=== PATIENT | female | born 1945 | race Caucasian/White ===

== ENCOUNTER 2017-10-15 14:52 | Emergency (ER) | payer OTHER ==
[~2017-10-15] VITALS: Ht 162.6 cm; Wt 77.1 kg
[2017-10-15] MEDS: METOPROLOL TARTRATE 1MG/1ML-5ML VIAL IV ONE (15:36)
[2017-10-15 16:48] LABS: Albumin 3.7 g/dL (3.4-5.0); Bilirubin, Total 0.6 mg/dL (0.2-1.0); Calcium 8.4 mg/dL (8.5-10.1); Magnesium 2.5 mg/dL (1.6-2.6); Potassium 3.8 mmol/L (3.5-5.1); Total Protein 6.7 g/dL (6.4-8.2)
[2017-10-15 16:50] LABS: Basophils # (auto) 0 uL; Basophils % (auto) 0.4 % (0.0-2.0); Eosinophils # (auto) 0 uL; Eosinophils % (auto) 0.3 % (0.0-7.0); Hematocrit 40.5 % (36.0-46.0); Hemoglobin 13.5 g/dL (12.2-16.2); Lymphocytes # (auto) 2.2 uL; Lymphocytes % (auto) 23.7 % (10.0-50.0); Mean Corpuscular Hemoglobin 28.5 pg (28.0-32.0); Mean Corpuscular Hgb Conc. 33.3 g/dL (32.0-36.0); Mean Corpuscular Volume 85.7 fL (80.0-100.0); Monocytes # (auto) 0.6 uL; Monocytes % (auto) 6.3 % (0.0-12.0); Neutrophils # (auto) 6.5 uL; Neutrophils % (auto) 69.3 % (37.0-80.0); Nucleated Red Blood Cells % 0.1 %; Platelet Count (auto) 226 10^3/uL (140-450); Red Blood Cells 4.72 10^6/uL (4.0-5.20); White Blood Cell 9.4 10^3/uL (4.4-10.8)
[2017-10-15] MEDS: FUROSEMIDE 40 MG/4 ML VIAL IV ONE (17:06)
[2017-10-15 17:30] VITALS: BP 153/81
== END 2017-10-15 17:57 | disposition home or self-care (01) ==
LOC: ER 14:56
DX: I48.91 Unspecified atrial fibrillation (principal); I11.0 Hypertensive heart disease with heart failure; I50.9 Heart failure, unspecified; F17.210 Nicotine dependence, cigarettes, uncomplicated; Z90.710 Acquired absence of both cervix and uterus
CPT/HCPCS: 36415; 71045; 80053; 80162; 83735; 83880; 84443; 84484; 85025; 93005; 94761; 96374; 96375; 99285; J1940

== ENCOUNTER 2022-08-06 15:47 | Emergency (ER) | payer MEDICARE, OTHER ==
[~2022-08-06] VITALS: Ht 160 cm; Wt 72.7 kg
[~2022-08-06 15:47] MED LIST: ALPR0.254 PO; BENZ100C97 PO; BUSP15TA60 PO; DIGO0.25 PO; LAMO100T44 PO; LOSA25TA38 PO; MET50T PO; POTA10TA51 PO; WARF2TAB49 PO
[2022-08-06 16:49] LABS: Basophils # (auto) 0 10 ^3/uL (0-0.2); Basophils % (auto) 0.2 % (0.0-2.0); Eosinophils # (auto) 0 10 ^3/uL (0-0.8); Eosinophils % (auto) 0.1 % (0.0-7.0); Hemoglobin 11.7 g/dL (12.2-16.2); Lymphocytes # (auto) 1.1 10 ^3/uL (0.4-5.4); Lymphocytes % (auto) 15.2 % (10.0-50.0); Mean Corpuscular Hemoglobin 29.7 pg (28.0-32.0); Mean Corpuscular Hgb Conc. 34.5 g/dL (32.0-36.0); Mean Corpuscular Volume 85.9 fL (80.0-100.0); Monocytes # (auto) 0.6 10 ^3/uL (0-1.3); Monocytes % (auto) 7.7 % (0.0-12.0); Neutrophils # (auto) 5.6 10 ^3/uL (1.6-8.6); Neutrophils % (auto) 76.8 % (37.0-80.0); Nucleated Red Blood Cells % 0.1 %; Red Blood Cells 3.96 10^6/uL (4.0-5.20); White Blood Cell 7.3 10^3/uL (4.4-10.8)
[2022-08-06 16:54] LABS: Red Cell Distribution Width 21.6 % (11.8-14.3)
[2022-08-06 17:04] LABS: Albumin 3.3 g/dL (3.4-5.0); Calcium 9.1 mg/dL (8.5-10.1); Magnesium 2.3 mg/dL (1.6-2.6); Potassium 4.3 mmol/L (3.5-5.1)
[2022-08-06 17:06] LABS: BUN/Creatinine Ratio 19.6 (10.0-20.0)
[2022-08-06 17:09] LABS: Bilirubin, Total 0.6 mg/dL (0.2-1.0); Total Protein 5.8 g/dL (6.4-8.2)
[2022-08-06] MEDS ORDERED: FURO40TA4 PO (19:53)
[2022-08-06 20:14] VITALS: BP 171/69
== END 2022-08-06 20:21 | disposition home or self-care (01) ==
LOC: EDBD 15:47 → ER 15:47
DX: M79.89 Other specified soft tissue disorders (principal); R60.9 Edema, unspecified; I11.0 Hypertensive heart disease with heart failure; I50.9 Heart failure, unspecified; F17.210 Nicotine dependence, cigarettes, uncomplicated; Z90.710 Acquired absence of both cervix and uterus
CPT/HCPCS: 36415; 71045; 80053; 83735; 83880; 84484; 85025; 93005

== ENCOUNTER → 2023-01-28 | Emergency (ER) | payer OTHER, MEDICARE ==
[~2023-01-28] VITALS: Ht 165.1 cm; Wt 63.6 kg
[~2023-01-28] MED LIST changes: +FURO40TA4 PO; +LOSA25TA15 PO; -LOSA25TA38 PO; -WARF2TAB49 PO; +WARF4TAB69 PO
[2023-01-28 19:15] LABS: Basophils # (auto) 0.1 10 ^3/uL (0-0.2); Basophils % (auto) 0.9 % (0.0-2.0); Eosinophils # (auto) 0.1 10 ^3/uL (0-0.8); Eosinophils % (auto) 0.8 % (0.0-7.0); Hematocrit 38.1 % (36.0-46.0); Hemoglobin 12.8 g/dL (12.2-16.2); Lymphocytes # (auto) 1.5 10 ^3/uL (0.4-5.4); Lymphocytes % (auto) 21.1 % (10.0-50.0); Mean Corpuscular Hgb Conc. 33.7 g/dL (32.0-36.0); Mean Corpuscular Volume 83.1 fL (80.0-100.0); Monocytes # (auto) 0.7 10 ^3/uL (0-1.3); Monocytes % (auto) 9.3 % (0.0-12.0); Neutrophils # (auto) 4.9 10 ^3/uL (1.6-8.6); Neutrophils % (auto) 67.9 % (37.0-80.0); Nucleated Red Blood Cells % 0.1 %; Red Blood Cells 4.59 10^6/uL (4.0-5.20); Red Cell Distribution Width 16.2 % (11.8-14.3); White Blood Cell 7.1 10^3/uL (4.4-10.8)
[2023-01-28 19:40] LABS: Alanine Aminotransferase 31 U/L (7-40); Alkaline Phosphatase 138 U/L (46-116); Anion Gap 10 (5-15); Aspartate Aminotransferase 30 U/L (13-40); BUN/Creatinine Ratio 17.9 (10.0-20.0); Bilirubin, Total 0.5 mg/dL (0.2-1.0); Blood Urea Nitrogen 17 mg/dL (9-23); Calcium 9.2 mg/dL (8.7-10.4); Carbon Dioxide 22 mmol/L (20-30); Chloride 104 mmol/L (98-107); Glucose 91 mg/dL (74-106); Potassium 3.9 mmol/L (3.5-5.1); Sodium 136 mmol/L (136-145); Total Protein 5.6 g/dL (5.7-8.2)
[2023-01-28 22:26] VITALS: BP 132/65; PULSE 89; RESP 16; TEMP 97.9; O2SAT 100
== END | disposition home or self-care (01) ==
LOC: ER 18:29 → EDBD 18:29 → EDUNIT# 18:29
DX: R10.84 Generalized abdominal pain (principal); K80.20 Calculus of gallbladder without cholecystitis without obstruction; K57.90 Diverticulosis of intestine, part unspecified, without perforation or abscess without bleeding; J44.9 Chronic obstructive pulmonary disease, unspecified; I11.0 Hypertensive heart disease with heart failure; I50.89 Other heart failure; F17.210 Nicotine dependence, cigarettes, uncomplicated; Z88.2 Allergy status to sulfonamides; Z88.0 Allergy status to penicillin; Z79.899 Other long term (current) drug therapy; Z90.710 Acquired absence of both cervix and uterus
CPT/HCPCS: 36415; 74176; 80053; 85025; 93005

== ENCOUNTER 2023-10-14 20:13 | Inpatient (IN) | payer OTHER, MEDICARE ==
[~2023-10-14] VITALS: Ht 165.1 cm; Wt 64.5 kg
[~2023-10-14 20:13] MED LIST changes: +LOSA-533 PO; -LOSA25TA15 PO; +POTA-36 PO; -POTA10TA51 PO
[2023-10-14 20:15] VITALS: O2SAT 96
[2023-10-14 20:27] VITALS: O2SAT 96
[2023-10-14] MEDS: ACETAMINOPHEN 325 MG TAB PO ONE ×2 (20:30)
[2023-10-14] MEDS ORDERED: MORPHINE SULFATE 4 MG/ML SYR/VIAL IV PRN (20:30)
[2023-10-14] MEDS: ASPirin 81 mg TAB PO ONE (20:48)
[2023-10-14] MEDS: FUROSEMIDE 40 MG/4 ML VIAL IV ONE (20:49)
[2023-10-14] MEDS: NITROGLYCERIN 2% OINT 1GM PKG TD STA (20:49)
[2023-10-14] MEDS: ALBUTEROL SULF 2.5 MG/0.5ML(0.5%) NEB SOLN HHN ONE (20:50)
[2023-10-14] MEDS: ONDANSETRON HCL 4 MG/2 ML VIAL IV ONE (20:50)
[2023-10-14] MEDS: methylPREDNISolone SOD SUCC 125 MG/2 ML VL IV ONE (20:50)
[2023-10-14] MEDS: IPRATROPIUM BROM 0.5 MG/2.5ML INH SOL HHN ONE (20:51)
[2023-10-14 21:06] LABS: Basophils # (auto) 0 10 ^3/uL (0-0.2); Basophils % (auto) 0.6 % (0.0-2.0); Lymphocytes # (auto) 1.8 10 ^3/uL (0.4-5.4); Monocytes # (auto) 0.4 10 ^3/uL (0-1.3); Neutrophils # (auto) 2.9 10 ^3/uL (1.6-8.6); Nucleated Red Blood Cells % 0.2 %; White Blood Cell 5.2 10^3/uL (4.4-10.8)
[2023-10-14] MEDS: cefTRIAXone 1GM/50ML D5W 50 ML IV ONE (21:06)
[2023-10-14 21:08] LABS: Eosinophils # (auto) 0.1 10 ^3/uL (0-0.8); Hematocrit 38.1 % (36.0-46.0); Lymphocytes % (auto) 35.2 % (10.0-50.0); Mean Corpuscular Hemoglobin 24.6 pg (28.0-32.0); Mean Corpuscular Hgb Conc. 31.4 g/dL (32.0-36.0); Mean Corpuscular Volume 78.5 fL (80.0-100.0); Monocytes % (auto) 7.5 % (0.0-12.0); Neutrophils % (auto) 55.7 % (37.0-80.0); Red Blood Cells 4.86 10^6/uL (4.0-5.20); Red Cell Distribution Width 16.6 % (11.8-14.3)
[2023-10-14 21:35] LABS: Alanine Aminotransferase 17 U/L (7-40); Albumin 4.4 g/dL (3.2-4.8); Alkaline Phosphatase 152 U/L (46-116); Anion Gap 10 (5-15); Aspartate Aminotransferase 22 U/L (13-40); BUN/Creatinine Ratio 13.4 (10.0-20.0); Blood Urea Nitrogen 17 mg/dL (9-23); Calcium 9.6 mg/dL (8.5-10.1); Carbon Dioxide 18 mmol/L (20-30); Chloride 108 mmol/L (98-107); Potassium 4.1 mmol/L (3.5-5.1); Sodium 136 mmol/L (136-145)
[2023-10-14 21:36] LABS: Bilirubin, Total 0.4 mg/dL (0.2-1.0); Total Protein 6.4 g/dL (5.7-8.2)
[2023-10-14 21:44] LABS: Base Excess -5.5 mmol/L (-2.0-2.0)
[2023-10-14 21:58] LABS: Lactic Acid w/Reflex 2.6 mmol/L (0.4-2.0)
[2023-10-14 22:04] LABS: Glucose 192 mg/dL (74-106)
[2023-10-14 22:05] LABS: INR 1.03 (0.9-1.15); Partial Thromboplastin Time 24.7 SEC (24.5-34.5); Prothrombin Time 10.9 sec (9.3-11.8)
[2023-10-14] MEDS ORDERED: IPRATROPIUM BROM 0.5 MG/2.5ML INH SOL NEB PRN (23:30)
[2023-10-14] MEDS ORDERED: ONDANSETRON HCL 4 MG/2 ML VIAL IV PRN (23:30)
[2023-10-14] MEDS ORDERED: MORPHINE SULFATE INJ 2 MG/ml SYRG IV PRN (23:30)
[2023-10-14] MEDS ORDERED: ALBUTEROL SULF 2.5 MG/0.5ML(0.5%) NEB SOLN NEB PRN (23:30)
[2023-10-14] MEDS ORDERED: AZITHROMYCIN 500MG/ 250ML 250 ML IV ONE (23:30)
[2023-10-14] MEDS ORDERED: ACETAMINOPHEN 325 MG TAB PO PRN (23:30)
[2023-10-14] MEDS ORDERED: NITROGLYCERIN 0.4 MG SL TAB SL PRN (23:30)
[2023-10-15] VITALS (10 sets, daily range): BP systolic 107–145; BP diastolic 51–73; PULSE 55–86; RESP 16–20; TEMP 97.5–98.2; O2SAT 95–98
[2023-10-15] MEDS: IOHEXOL 350 MG/ML 100ML IJ ONE (00:23)
[2023-10-15] MEDS: ENOXAPARIN SOD 100 MG/1 ML SYRINGE SC ONE (00:30)
[2023-10-15] MEDS: DIGOXIN 0.125 MG TAB PO ONE (01:52)
[2023-10-15 03:31] LABS: Basophils # (auto) 0 10 ^3/uL (0-0.2); Eosinophils # (auto) 0 10 ^3/uL (0-0.8); Hemoglobin 11.5 g/dL (12.2-16.2); Lymphocytes # (auto) 0.3 10 ^3/uL (0.4-5.4); Monocytes # (auto) 0.1 10 ^3/uL (0-1.3); Monocytes % (auto) 1.5 % (0.0-12.0); Red Cell Distribution Width 16.7 % (11.8-14.3)
[2023-10-15 03:33] LABS: Hematocrit 35.4 % (36.0-46.0); Lymphocytes % (auto) 5.8 % (10.0-50.0); Mean Corpuscular Hemoglobin 24.6 pg (28.0-32.0); Mean Corpuscular Hgb Conc. 32.4 g/dL (32.0-36.0); Mean Corpuscular Volume 76.1 fL (80.0-100.0); Neutrophils # (auto) 4.5 10 ^3/uL (1.6-8.6); Neutrophils % (auto) 92.7 % (37.0-80.0); Nucleated Red Blood Cells % 0.1 %; Red Blood Cells 4.66 10^6/uL (4.0-5.20); White Blood Cell 4.9 10^3/uL (4.4-10.8)
[2023-10-15 04:04] LABS: Alanine Aminotransferase 17 U/L (7-40); Albumin 4.4 g/dL (3.2-4.8); Alkaline Phosphatase 140 U/L (46-116); Anion Gap 12 (5-15); Aspartate Aminotransferase 21 U/L (13-40); BUN/Creatinine Ratio 14.2 (10.0-20.0); Bilirubin, Total 0.5 mg/dL (0.2-1.0); Blood Urea Nitrogen 17 mg/dL (9-23); Calcium 9.8 mg/dL (8.7-10.4); Carbon Dioxide 19 mmol/L (20-30); Chloride 103 mmol/L (98-107); Glucose 178 mg/dL (74-106); Potassium 3.8 mmol/L (3.5-5.1); Sodium 134 mmol/L (136-145); Total Protein 6.6 g/dL (5.7-8.2)
[2023-10-15] MEDS: FUROSEMIDE 20 MG/2 ML VIAL IV SCH (06:00)
[2023-10-15] MEDS ORDERED: AZITHROMYCIN 500MG/ 250ML 250 ML IV SCH (10:00)
[2023-10-15] MEDS: amLODIPine BESYLATE 5 MG TAB PO SCH (10:00)
[2023-10-15] MEDS: CARVEDILOL 3.125 MG TAB PO SCH (10:00)
[2023-10-15] MEDS: ASPirin 81 mg TAB PO SCH (10:00)
[2023-10-15] MEDS: DIGOXIN 0.125 MG TAB PO SCH (10:00)
[2023-10-15] MEDS: cefTRIAXone 1GM/50ML D5W 50 ML IV SCH (14:00)
[2023-10-15] MEDS: buPROPion HCL 75 MG TAB PO SCH (18:59)
[2023-10-15] MEDS: ATORVASTATIN 20 MG TAB PO SCH (21:50)
[2023-10-15 23:55] LABS: Urine Bacteria None Seen /hpf (None Seen)
[2023-10-16] VITALS (11 sets, daily range): BP systolic 110–126; BP diastolic 58–71; PULSE 37–77; RESP 14–20; TEMP 97.7–98.2; O2SAT 93–97
[2023-10-16] LABS: Urine Blood 2+ /uL (Negative); Urine Clarity Clear (Clear); Urine Color Light-Yellow (Yellow); Urine Protein, UAD TRACE (Negative); Urine Specific Gravity 1.024 (1.001-1.035); Urine Urobilinogen Normal (Negative); Urine WBC 7 /hpf (0 - 5); Urine pH 5.5 (5.0-9.0)
[2023-10-16 07:04] LABS: Hematocrit 33.8 % (36.0-46.0); Hemoglobin 10.9 g/dL (12.2-16.2); Mean Corpuscular Hgb Conc. 32.2 g/dL (32.0-36.0)
[2023-10-16 07:07] LABS: Basophils # (auto) 0 10 ^3/uL (0-0.2); Basophils % (auto) 0.5 % (0.0-2.0); Eosinophils # (auto) 0 10 ^3/uL (0-0.8); Eosinophils % (auto) 0.3 % (0.0-7.0); Lymphocytes # (auto) 1.1 10 ^3/uL (0.4-5.4); Lymphocytes % (auto) 11.2 % (10.0-50.0); Mean Corpuscular Hemoglobin 24.9 pg (28.0-32.0); Mean Corpuscular Volume 77.3 fL (80.0-100.0); Monocytes # (auto) 0.8 10 ^3/uL (0-1.3); Monocytes % (auto) 7.4 % (0.0-12.0); Neutrophils # (auto) 8.2 10 ^3/uL (1.6-8.6); Neutrophils % (auto) 80.6 % (37.0-80.0); Nucleated Red Blood Cells % 0.1 %; Red Blood Cells 4.37 10^6/uL (4.0-5.20); Red Cell Distribution Width 16.8 % (11.8-14.3); White Blood Cell 10.2 10^3/uL (4.4-10.8)
[2023-10-16 07:15] LABS: Anion Gap 10 (5-15); Calcium 9.6 mg/dL (8.5-10.1); Carbon Dioxide 22 mmol/L (20-30); Chloride 101 mmol/L (98-107); Sodium 133 mmol/L (136-145)
[2023-10-16 07:21] LABS: Glucose 109 mg/dL (74-106)
[2023-10-16 07:22] LABS: Blood Urea Nitrogen 29 mg/dL (9-23)
[2023-10-16] MEDS: FLUoxetine HCL 20 MG CAP PO SCH (09:54)
[2023-10-16 20:47] LABS: COVID19 ANTIGEN SOFIA FIA NEGATIVE (NEGATIVE)
[2023-10-16] MEDS: OXYCODONE W/ ACETAMINOPHEN 5/325MG TABLET PO PRN (21:19)
== END 2023-10-16 23:25 | disposition short-term general hospital (02) | DRG 280 ==
LOC: EDBD 20:13 → ER 20:13 → TELE 23:34 → TELE-CENTR 10-15 09:15
PROVIDERS: ADMIT Nurse Practitioner; ATTEND Internal Medicine
PROC: 5A09357 Assistance with Respiratory Ventilation, Less than 24 Consecutive Hours, Continuous Positive Airway Pressure (ICD-10-PCS; principal; 2023-10-14)
DX: I13.0 Hypertensive heart and chronic kidney disease with heart failure and stage 1 through stage 4 chronic kidney disease, or unspecified chronic kidney disease (principal); I50.43 Acute on chronic combined systolic (congestive) and diastolic (congestive) heart failure; I21.A1 Myocardial infarction type 2; J18.9 Pneumonia, unspecified organism; J96.21 Acute and chronic respiratory failure with hypoxia; J44.1 Chronic obstructive pulmonary disease with (acute) exacerbation; J44.0 Chronic obstructive pulmonary disease with (acute) lower respiratory infection; I48.91 Unspecified atrial fibrillation; F32.A Depression, unspecified; F41.9 Anxiety disorder, unspecified; N18.32 Chronic kidney disease, stage 3b; Z95.810 Presence of automatic (implantable) cardiac defibrillator; Z90.710 Acquired absence of both cervix and uterus; Z82.0 Family history of epilepsy and other diseases of the nervous system; Z82.5 Family history of asthma and other chronic lower respiratory diseases; Z80.8 Family history of malignant neoplasm of other organs or systems; Z82.49 Family history of ischemic heart disease and other diseases of the circulatory system
CPT/HCPCS: 36415; 36600; 71045; 71275; 80048; 80053; 80162; 81001; 82805; 83605; 83735; 83880; 84484; 85025; 85379; 85610; 85730; 87040; 87426; 93005; 93306; 97163; G0378; J2405

== ENCOUNTER 2024-03-07 01:55 | Inpatient (IN) | payer OTHER, MEDICARE ==
[~2024-03-07] VITALS: Ht 165.1 cm; Wt 67.2 kg
[2024-03-07] VITALS (10 sets, daily range): BP systolic 101–113; BP diastolic 65–73; PULSE 84–123; RESP 16–35; TEMP 97.4–99; O2SAT 92–99
[~2024-03-07 01:55] MED LIST changes: -WARF4TAB69 PO
[2024-03-07] MEDS: FUROSEMIDE 40 MG/4 ML VIAL IV ONE (02:02)
[2024-03-07] MEDS: ONDANSETRON HCL 4 MG/2 ML VIAL IV ONE (02:03)
--- NOTE | 2024-03-07 02:03 | ED.PDOC ---
History of Present Illness HPI Comments 78 y/o F, with a Hx of AFIB, CHF, COPD w/PRN O2, HTN, pacemaker, and tobacco use, is BIBA for c/o shortness of breath, today. Per EMS report, patient endorses unprovoked and sudden onset of difficulty breathing, this morning, at around 0120. On scene, patient was found with a SpO2 of 71% on her at-home CPAP device, with all remaining vitals within normal limits. En route, patient was placed on 10 LPM O2 , with SpO2 improving to 91%, in addition to an 18G to left AC. Upon arrival to ED, patient is alert and denies any chest pain, dyspnea, palpitations, fever, chills, or other associated symptoms or modifiers at this time. Chief Complaint: Shortness of Breath Time Seen by MD: 01:50 Primary Care Provider: HEBER Reviewed Notes: Nurses Notes, Strip Roller Notes, Medications, Allergies Allergies: Coded Allergies: Lisinopril (Verified Allergy, Unknown, 03/30/18) Sulfa Antibiotics (Verified Allergy, Unknown, 03/30/18) Home Meds Active Scripts Furosemide (Furosemide) 40 Mg Tab, 1 TAB PO DAILY for 15 Days, #15 TAB 5 Refills Prov:SUE KNOWLES 08/06/22 Reported Medications Benzonatate (Benzonatate) 100 Mg Cap, 1-2 CAP PO Q4HR PRN for FOR COUGH, #60 CAP 03/30/18 Potassium Chloride (POTASSIUM CHLORIDE CR) 10 Meq Tb, 1 TAB PO DAILY, #30 TAB 5 Refills 03/30/18 Losartan Potassium (Losartan Potassium) 25 Mg Tab, 1 TAB PO DAILY, #90 TAB 1 Refill 03/30/18 Metoprolol Tartrate (LOPRESSOR TABLET) 50 Mg Tb, 1 TAB PO BID, #60 TAB 5 Refills 03/30/18 Alprazolam (Alprazolam) 0.25 Mg Tab, 0.25 MG PO PRN for ANXIETY, TAB 03/30/18 Lamotrigine (Lamotrigine) 100 Mg Tab, 100 MG PO QPM, TAB 03/30/18 Buspirone Hcl (Buspirone Hcl) 15 Mg Tab, 30 MG PO QPM, TAB 03/30/18 Digoxin (Digoxin) 250 Mcg Tab, 250 MCG PO QPM, TAB 03/30/18 Information Source: Patient, Emergency Med Personnel Mode of Arrival: EMS Severity: Moderate Timing: Minutes Duration: Since onset Prehospital treatment: 12 Lead EKG, Barrel Washer Machine, C-Pap, Oxygen Past Medical History PAST MEDICAL HISTORY: AFIB, CHF, COPD, HTN Surgical History: Hysterectomy, Pacemaker 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 Family History Family History: Unknown Social History Smoker: Cigarettes, Less Than 1 Pack/Day Alcohol: Denies ETOH Use Drugs: Denies Drug Use Lives In: Home Constitutional: denies: chills, diaphoresis, fatigue, fever, malaise, sweats, weakness, others EENTM: denies: blurred vision, double vision, ear bleeding, ear discharge, ear drainage, ear pain, ear ringing, eye pain, eye redness, hearing loss, mouth pain, mouth swelling, nasal discharge, nose bleeding, nose congestion, nose pain, photophobia, tearing, throat pain, throat swelling, voice changes, others Respiratory: reports: shortness of breath; denies: cough, hemoptysis, orthopnea, SOB at rest, SOB with excertion, stridor, wheezing, others Cardiovascular: denies: chest pain, dizzy spells, diaphoresis, Dyspnea on exertion, edema, irregular heart beat, left arm pain, lightheadedness, palpitations, PND, syncope, others Gastrointestinal: denies: abdomen distended, abdominal pain, blood streaked bowels, constipated, diarrhea, dysphagia, difficulty swallowing, hematemesis, melena, nausea, poor appetite, poor fluid intake, rectal bleeding, rectal pain, vomiting, others Genitourinary: denies: abnormal vagina bleeding, burning, dyspareunia, dysuria, flank pain, frequency, hematuria, incontinence, pain, , vagina discharge, urgency, others Neurological: denies: dizziness, fainting, headache, left sided numbness, left sided weakness, numbness, paresthesia, pre-existing deficit, right sided numbness, right sided weakness, seizure, speech problems, tingling, tremors, weakness, others Musculoskeletal: denies: back pain, gout, joint pain, joint swelling, muscle pain, muscle stiffness, neck pain, others Integumetry: denies: bruises, change in color, change in hair/nails, dryness, laceration, lesions, lumps, rash, wounds, others Allergic/Immunocompromised: denies: Difficulty Healing, Frequent Infections, Hives, Itching, others Hematologic/Lymphatic: denies: anemia, blood clots, easy bleeding, easy bruising, swollen glands, others Endocrine: denies: excessive hunger, excessive sweating, excessive thirst, excessive urination, flushing, intolerance to cold, intolerance to heat, unexplained weight gain, unexplained weight loss, others Psychiatric: denies: anxiety, bipolar disorder, depression, hopeless, panic disorder, schizophrenia, sleepless, suicidal, others All Other Systems: Reviewed and Negative Physical Exam General Appearance: Severe Distress HEENT: Normal ENT Inspection, Pharynx Normal, TMs Normal Neck: Full Range of Motion, Non-Tender, Normal, Normal Inspection Respiratory: Accessory Muscle Use, Respiratory Distress, Other (Coarse breath sounds) Cardiovascular: No Edema, No JVD, No Murmur, No Gallop, Normal Peripheral Pulses, Regular Rate/Rhythm Breast Exam: Deferred Gastrointestinal: No Organomegaly, Non Tender, No Pulsatile Mass, Normal Bowel Sounds, Soft Genitalia: Deferred Pelvic: Deferred Rectal: Deferred Extremities: Pedal edema Musculoskeletal : Apperance: Normal Neurologic: Alert Cerebellar Function: NOT DONE Reflexes: NOT DONE Skin: Normal Color Peripheral Pulses: 3+ Radial (R), 3+ Radial (L) Lymphatic: No Adenopathy Was a procedure done? Was a procedure done?: No Differential Dx Considerations may include: acute respiratory distress, bronchitis, PNA, Covid19, URI, viral syndrome X-Ray, Labs, Meds, VS Vital Signs Date Time Temp Pulse Resp B/P (MAP) Pulse Ox O2 Delivery O2 Flow Rate FiO2 03/07/24 04:00 106 19 105/77 (86) 100 03/07/24 02:12 107 03/07/24 02:02 115/87 03/07/24 02:00 97.7 123 35 126/87 (100) 94 97.7 03/07/24 01:58 97.7 97 22 119/89 (99) 91 Lab Test 03/07/24 03:20 03/07/24 03:04 03/07/24 02:20 Range/Units Troponin I High Sensitivity 23 21 </=34 ng/L Urine Color Light-yellow Yellow Urine Clarity Clear Clear Urine pH 6.0 5.0-9.0 Urine Specific [place] 1.010 1.001-1.035 Urine Protein Negative Negative Urine Ketones Negative Negative Urine Blood Negative Negative /uL Urine Nitrite Negative Negative Urine Bilirubin Negative Negative Urine Urobilinogen Normal Negative mg/dL Urine Leukocyte Esterase Negative Negative /uL Urine RBC 1 0 - 4 /hpf Urine WBC 3 0 - 5 /hpf Urine Squamous Epithelial Cells Few <5 /hpf Urine Bacteria None seen None Seen /hpf Urine Glucose Normal Normal mg/dL White Blood Count 4.7 4.4-10.8 10^3/uL Red Blood Count 3.79 L 4.0-5.20 10^6/uL Hemoglobin 9.4 L 12.2-16.2 g/dL Hematocrit 29.6 L 36.0-46.0 % Mean Corpuscular Volume 78.1 L 80.0-100.0 fL Mean Corpuscular Hemoglobin 24.8 L 28.0-32.0 pg Mean Corpuscular Hemoglobin Concent 31.8 L 32.0-36.0 g/dL Red Cell Distribution Width 16.7 H 11.8-14.3 % Platelet Count 189 140-450 10^3/uL Mean Platelet Volume 7.6 6.9-10.8 fL Neutrophils (%) (Auto) 64.9 37.0-80.0 % Lymphocytes (%) (Auto) 26.3 10.0-50.0 % Monocytes (%) (Auto) 6.6 0.0-12.0 % Eosinophils (%) (Auto) 1.3 0.0-7.0 % Basophils (%) (Auto) 0.9 0.0-2.0 % Neutrophils # (Auto) 3.1 1.6-8.6 10 ^3/uL Lymphocytes # (Auto) 1.2 0.4-5.4 10 ^3/uL Monocytes # (Auto) 0.3 0-1.3 10 ^3/uL Eosinophils # (Auto) 0.1 0-0.8 10 ^3/uL Basophils # (Auto) 0 0-0.2 10 ^3/uL Nucleated Red Blood Cells 0.1 % Sodium Level 141 136-145 mmol/L Potassium Level 3.3 L 3.5-5.1 mmol/L Chloride Level 107 98-107 mmol/L Carbon Dioxide Level 23 20-31 mmol/L Anion Gap 11 5-15 Blood Urea Nitrogen 32 H 9-23 mg/dL Creatinine 1.50 H 0.550-1.02 mg/dL Glomerular Filtration Rate Calc 36 >90 mL/min BUN/Creatinine Ratio 21.3 H 10.0-20.0 Serum Glucose 204 H 74-106 mg/dL Calcium Level 9.2 8.7-10.4 mg/dL B-Type Natriuretic Peptide 1627.79 0-100 pg/mL Current Medications Medications (Trade) Dose Ordered Sig/Cortney Route Start Time Stop Time Status Last Admin Furosemide (Lasix Injection) 40 mg ONCE ONCE IV 03/07/24 02:00 03/07/24 02:01 DC 03/07/24 02:02 Ondansetron HCl (Zofran) 4 mg ONCE ONCE IV 03/07/24 02:15 03/07/24 02:16 DC 03/07/24 02:03 Potassium Chloride 100 ml @ 50 mls/hr ONCE ONCE IV 03/07/24 03:15 03/07/24 05:14 03/07/24 03:44 [place] [address] Ph: [phone] DIAGNOSTIC IMAGING Diagnostic Imaging Report : [id number] Signed PATIENT: PHUONG BE ACCT: [id number] UNIT: [id number] : 1945 LOC: ER ROOM / BED: / AGE / SEX: 78 / F ADM STATUS: REG ER SERVICE 0157 ORDERING PHYSICIAN: MIRIAM BANDA MD PROCEDURE(s): CXRP - CHEST PORTABLE REASON: sob ORDER NUMBER(s): [id number], ACCESSION NUMBER(s): [id number] Examination: CXRP Clinical Indication: sob Comparison: None. Technique: Frontal radiograph of the chest was obtained. Findings: Patient is in rotation. Central pulmonary venous congestion along with prominent bronchovascular markings in both lungs. Inhomogeneous radiopacities in the left mid and both lower lungs, suggestive of patchy consolidation. Thin linear radiopacity in right mid lung, atelectatic band/scarring. Blunting of the left costophrenic angle, suggestive of pleural effusion. No pleural effusion on right side in current study. There is no pneumothorax. Mild cardiomegaly. Cardiac pacemaker is noted on left side with intact leads. No acute osseous abnormality is seen. Impression: 1. Mild cardiomegaly. 2. Central pulmonary venous congestion along with prominent bronchovascular markings in both lungs. 3. Patchy consolidations in the left mid and both lower lungs. 4. Atelectatic band/scarring in the right mid lung. 5. Mild left pleural effusion. 6. Advised further evaluation with CT chest without contrast. Electronically Signed 03/07/2024 03:11 Khoa Gutierrez ATED BY: CELINA TYLER MD DICTATED DATE/TIME: 03/07/24310 SIGNED BY: CELINA TYLER MD SIGNED DATE/TIME: 03/07/24310 CC: Patient alert. Came in on CPAP. Vitals stable. Placed on oxygen. She does use her diaphragm to help her breathe. Was given Lasix. Was given Zofran. EKG reviewed does not show any acute changes. Reviewed her previous visit. Explained to the patient. Continue cardiac monitoring. ABG reviewed is within normal limits. Using accessory muscles. Possibly will need to go back BiPAP. May need to be intubated. Unstable for transfer. [facility] approved inpatient admission [id number]. Chest x-ray does show CHF along with pneumonia. Was given Rocephin. Was given azithromycin. Time of 1ST Reevaluation: 02:20 Reevaluation 1ST: Unchanged Patient Education/Counseling: Diagnosis, Treatment Family Education/Counseling: No Family Present Departure 1 Departure Time of Disposition: 02:16 Impression: Primary Impression: Acute respiratory failure Qualified Codes: J96.01 - Acute respiratory failure with hypoxia Additional Impressions: CHF exacerbation Qualified Codes: I50.43 - Acute on chronic combined systolic (congestive) and diastolic (congestive) heart failure Pneumonia Qualified Codes: J18.9 - Pneumonia, unspecified organism Disposition: ADMITTED INPATIENT Admit to: Med Surg Condition: Guarded Critical Care Note Critical Care Time?: Yes (90 min-critical care time only) Stability Stability form required: No Heart Score Heart Score: Heart Score Response (Comments) Value History Moderate Suspicious 1 EKG Normal 0 Age >65 2 Risk Factors 1 or 2 risk factors 1 Troponin Normal limit 0 Total 4 I personally scribed for MIRIAM BANDA MD ([email or web address]) on 03/07/24 at 02:03. Electronically submitted by Oumar Villalobos ([email or web address]). I personally scribed for MIRIAM BANDA MD ([email or web address]) on 03/07/24 at 04:25. Electronically submitted by Oumar Villalobos ([email or web address]). MIRIAM BANDA MD Mar 07, 2024 02:03
[2024-03-07 02:32] LABS: Basophils # (auto) 0 10 ^3/uL (0-0.2); Basophils % (auto) 0.9 % (0.0-2.0); Eosinophils # (auto) 0.1 10 ^3/uL (0-0.8); Eosinophils % (auto) 1.3 % (0.0-7.0); Hemoglobin 9.4 g/dL (12.2-16.2); Lymphocytes # (auto) 1.2 10 ^3/uL (0.4-5.4); Mean Corpuscular Hgb Conc. 31.8 g/dL (32.0-36.0); Mean Corpuscular Volume 78.1 fL (80.0-100.0); Monocytes # (auto) 0.3 10 ^3/uL (0-1.3); Neutrophils # (auto) 3.1 10 ^3/uL (1.6-8.6); Neutrophils % (auto) 64.9 % (37.0-80.0); Nucleated Red Blood Cells % 0.1 %; White Blood Cell 4.7 10^3/uL (4.4-10.8)
[2024-03-07 02:34] LABS: Hematocrit 29.6 % (36.0-46.0); Lymphocytes % (auto) 26.3 % (10.0-50.0); Mean Corpuscular Hemoglobin 24.8 pg (28.0-32.0); Monocytes % (auto) 6.6 % (0.0-12.0); Platelet Count (auto) 189 10^3/uL (140-450); Red Blood Cells 3.79 10^6/uL (4.0-5.20); Red Cell Distribution Width 16.7 % (11.8-14.3)
[2024-03-07 02:43] LABS: Chloride 107 mmol/L (98-107); Potassium 3.3 mmol/L (3.5-5.1); Sodium 141 mmol/L (136-145)
[2024-03-07 02:44] LABS: Anion Gap 11 (5-15); Calcium 9.2 mg/dL (8.7-10.4); Carbon Dioxide 23 mmol/L (20-31)
[2024-03-07 02:49] LABS: BUN/Creatinine Ratio 21.3 (10.0-20.0); Blood Urea Nitrogen 32 mg/dL (9-23); Glucose 204 mg/dL (74-106)
[2024-03-07 03:08] LABS: Urine Bacteria None Seen /hpf (None Seen)
--- NOTE | 2024-03-07 03:20 | DVH ---
Examination: CXRP Clinical Indication: sob Comparison: None. Technique: Frontal radiograph of the chest was obtained. Findings: Patient is in rotation. Central pulmonary venous congestion along with prominent bronchovascular markings in both lungs. Inhomogeneous radiopacities in the left mid and both lower lungs, suggestive of patchy consolidation. Thin linear radiopacity in right mid lung, atelectatic band/scarring. Blunting of the left costophrenic angle, suggestive of pleural effusion. No pleural effusion on right side in current study. There is no pneumothorax. Mild cardiomegaly. Cardiac pacemaker is noted on left side with intact leads. No acute osseous abnormality is seen. Impression: 1. Mild cardiomegaly. 2. Central pulmonary venous congestion along with prominent bronchovascular markings in both lungs. 3. Patchy consolidations in the left mid and both lower lungs. 4. Atelectatic band/scarring in the right mid lung. 5. Mild left pleural effusion. 6. Advised further evaluation with CT chest without contrast. Electronically Signed 03/07/2024 03:11 Khoa Gutierrez
[2024-03-07 03:28] LABS: Urine Blood Negative /uL (Negative); Urine Clarity Clear (Clear); Urine Color Light-Yellow (Yellow); Urine Protein, UAD Negative (Negative); Urine Urobilinogen Normal (Negative); Urine WBC 3 /hpf (0 - 5)
[2024-03-07] MEDS: POTASSIUM CHL 20MEQ/100ML 100 ML IV ONE (03:44)
[2024-03-07] MEDS: cefTRIAXone 1GM/50ML D5W 50 ML IV ONE (05:20)
--- NOTE | 2024-03-07 06:35 | ECG ---
[facility] Test Date: 2024-03-07 Test Time: 02:12:09 Pat Name: PHUONG BE Department: ED Room: 0204T Gender: F Carboy Filler: ANDRADE : 1945 Requested By: MIRIAM BANDA Order Number: [id number] Reading MD: Ruiz Gambino Measurements Intervals [place] Rate: 107 P: 0 LA: 0 QRS: -45 QRSD: 148 T: 8 QT: 391 QTc: 522 Interpretive Statements Atrial fibrillation Nonspecific IVCD with LAD Probable anteroseptal infarct, recent Electronically Signed On 03-11-2024 17:05:14 PST by Ruiz Gambino Please click the below link to view image of tracing.
[2024-03-07] MEDS: AZITHROMYCIN 500MG/ 250ML 250 ML IV ONE (07:03)
[2024-03-07] MEDS ORDERED: MORPHINE SULFATE INJ 2 MG/ml SYRG IV PRN (14:30)
[2024-03-07] MEDS ORDERED: ONDANSETRON HCL 4 MG/2 ML VIAL IV PRN (14:30)
[2024-03-07] MEDS ORDERED: HYDROcodone-ACET 5/325MG TAB PO PRN (14:30)
[2024-03-07] MEDS ORDERED: MAALOX PLUS or MAALOX 30 ML PO PRN (14:30)
[2024-03-07] MEDS ORDERED: ALPRAZolam 0.25 MG TAB PO PRN (14:30)
[2024-03-07] MEDS ORDERED: DOCUSATE SOD 100 MG CAP PO PRN (14:30)
[2024-03-07] MEDS ORDERED: IPRATROPIUM BROM 0.5 MG/2.5ML INH SOL NEB ONE (14:30)
--- NOTE | 2024-03-07 14:59 | DVHHP2 ---
History of Present Illness Reason for Visit: Shortness of breaths History of Present Illness 78-year-old with history of CHF COPD hypertension brought into the ED with complaints of severe respiratory distress shortness of breath requiring CPAP patient has a history of AFib as well showing signs of shortness of breath requiring CPAP now patient is improved with breathing treatments antibiotics under the impression that currently the patient has COPD exacerbation and signed that need to be treated as if pneumonia patient was recommended for admission to the hospital for further evaluation and continued management Cardiovascular: CAD, CHF, HTN Pulmonary: COPD Review of Systems Constitutional: Yes: Weakness; No: Fever, Chills, Sweats, Malaise, Other Eyes: No: Pain, Vision change, Conjunctivae inflammation, Eyelid inflammation, Other, Redness ENT: No: Ear pain, Ear discharge, Nose pain, Nose discharge, Nose congestion, Mouth pain, Mouth swelling, Throat pain, Throat swelling, Other Respiratory: Cough, Shortness of breath; No: Dry, SOB with excertion, Wheezing, Hemoptysis, Pleuritic Pain, Sputum, Wheezing, Other Cardiovascular: Chest Pain, Palpitations; No: Orthopnea, Paroxysmal Noc. Dyspnea, Edema, Lt Headedness, Other Gastrointestinal: No: Nausea, Vomiting, Abdominal Pain, Diarrhea, Constipation, Melena, Hematochezia, Other Genitourinary: No Dysuria, No Frequency, No Incontinence, No Hematuria, No Retention, No Other Musculoskeletal: No: other, neck pain, shoulder pain, arm pain, back pain, hand pain, leg pain, foot pain Skin: No: Rash, Lesions, Jaundice, Bruising, Other Neurological: Weakness; No: Numbness, Incoordination, Change in speech, Confusion, Seizures, Other Allergies: Coded Allergies: Lisinopril (Verified Allergy, Unknown, 03/30/18) Sulfa Antibiotics (Verified Allergy, Unknown, 03/30/18) Medications Current Medications Medications Dose Ordered Sig/Cortney Route Start Time Stop Time Status Last Admin Dose Admin Ceftriaxone Sodium 50 ml @ 100 mls/hr DAILY IV 03/08/24 10:00 UNV Azithromycin 500 mg DAILY PO 03/08/24 10:00 UNV Furosemide 40 mg BID IV 03/07/24 22:00 UNV Alprazolam 0.25 mg Q4HR PRN PO 03/07/24 14:30 UNV Lamotrigine 100 mg QPM PO 03/07/24 18:00 UNV Losartan Potassium 25 mg DAILY PO 03/08/24 10:00 UNV Metoprolol Tartrate 50 mg BID PO 03/07/24 22:00 UNV Patient Own Medication 30 mg QPM PO 03/07/24 18:00 UNV Patient Own Medication 250 mcg QPM PO 03/07/24 18:00 UNV Patient Own Medication 1 tab DAILY PO 03/08/24 10:00 UNV Albuterol 2.5 mg Q4HWA PRN NEB 03/07/24 14:30 UNV Methylprednisolone Sodium Succinate 40 mg BID IV 03/07/24 14:30 UNV Al Hydrox/Mg Hydrox/Simethicone 30 ml Q6HP PRN PO 03/07/24 14:30 UNV Docusate Sodium 100 mg BIDPRN PRN PO 03/07/24 14:30 UNV Acetaminophen 650 mg Q6HP PRN PO 03/07/24 14:30 UNV Acetaminophen/ Hydrocodone Bitart 1 tab Q4HP PRN PO 03/07/24 14:30 UNV Ondansetron HCl 4 mg Q4HP PRN IV 03/07/24 14:30 UNV Morphine Sulfate 2 mg Q4HPRN PRN IV 03/07/24 14:30 UNV Exam Vital Signs Vital Signs Date Time Temp Pulse Resp B/P (MAP) Pulse Ox O2 Delivery O2 Flow Rate FiO2 03/07/24 13:00 88 22 113/73 (86) 97 03/07/24 08:49 Non-Rebreather 10 N/A 03/07/24 02:00 97.7 97.7 General Appearance: Alert, Oriented X3, moderate distress Respiratory: Clear to auscultation (Shortness of the breath wheezing), Normal air movement Cardiovascular: Regular rate, Normal S1, Normal S2 Abdominal: Normal bowel sounds, Soft Extremities: No clubbing, No cyanosis Skin: No rashes, No breakdown Neuro: Normal gait, Normal speech Psych/Mental Status: Mood NL Labs/Xrays Labs Test 03/07/24 04:28 03/07/24 03:04 03/07/24 02:20 Range/Units Troponin I High Sensitivity 23 </=34 ng/L Urine Color Light-yellow Yellow Urine Clarity Clear Clear Urine pH 6.0 5.0-9.0 Urine Specific [place] 1.010 1.001-1.035 Urine Protein Negative Negative Urine Ketones Negative Negative Urine Blood Negative Negative /uL Urine Nitrite Negative Negative Urine Bilirubin Negative Negative Urine Urobilinogen Normal Negative mg/dL Urine Leukocyte Esterase Negative Negative /uL Urine RBC 1 0 - 4 /hpf Urine WBC 3 0 - 5 /hpf Urine Squamous Epithelial Cells Few <5 /hpf Urine Bacteria None seen None Seen /hpf Urine Glucose Normal Normal mg/dL White Blood Count 4.7 4.4-10.8 10^3/uL Red Blood Count 3.79 L 4.0-5.20 10^6/uL Hemoglobin 9.4 L 12.2-16.2 g/dL Hematocrit 29.6 L 36.0-46.0 % Mean Corpuscular Volume 78.1 L 80.0-100.0 fL Mean Corpuscular Hemoglobin 24.8 L 28.0-32.0 pg Mean Corpuscular Hemoglobin Concent 31.8 L 32.0-36.0 g/dL Red Cell Distribution Width 16.7 H 11.8-14.3 % Platelet Count 189 140-450 10^3/uL Mean Platelet Volume 7.6 6.9-10.8 fL Neutrophils (%) (Auto) 64.9 37.0-80.0 % Lymphocytes (%) (Auto) 26.3 10.0-50.0 % Monocytes (%) (Auto) 6.6 0.0-12.0 % Eosinophils (%) (Auto) 1.3 0.0-7.0 % Basophils (%) (Auto) 0.9 0.0-2.0 % Neutrophils # (Auto) 3.1 1.6-8.6 10 ^3/uL Lymphocytes # (Auto) 1.2 0.4-5.4 10 ^3/uL Monocytes # (Auto) 0.3 0-1.3 10 ^3/uL Eosinophils # (Auto) 0.1 0-0.8 10 ^3/uL Basophils # (Auto) 0 0-0.2 10 ^3/uL Nucleated Red Blood Cells 0.1 % Sodium Level 141 136-145 mmol/L Potassium Level 3.3 L 3.5-5.1 mmol/L Chloride Level 107 98-107 mmol/L Carbon Dioxide Level 23 20-31 mmol/L Anion Gap 11 5-15 Blood Urea Nitrogen 32 H 9-23 mg/dL Creatinine 1.50 H 0.550-1.02 mg/dL Glomerular Filtration Rate Calc 36 >90 mL/min BUN/Creatinine Ratio 21.3 H 10.0-20.0 Serum Glucose 204 H 74-106 mg/dL Calcium Level 9.2 8.7-10.4 mg/dL B-Type Natriuretic Peptide 1627.79 0-100 pg/mL Assessment/Plan Assessment/Plan [facility] Acute on chronic COPD exacerbation Signs of shortness of breath Wheezing P.r.n. breathing treatments IV antibiotics P.o. antibiotics P.r.n. steroids Acute on chronic CHF exacerbation BNP elevated Signs of fluid overload B.i.d. diuretics Monitor for fluid overload Monitor for acute worsening creatinine or signs of KAILASH with diuretic use Continue with home medications as tolerated Plan discussed with: Patient My Orders Orders - AUGIE DEE MD Procedure Category Date Status Time Ceftriaxone 1gm/50ml PHA 03/08/24 Logged D5w (Rocephin) 10:00 Azithromycin Tablet PHA 03/08/24 Logged (Zithromax Tablet) 10:00 Furosemide Injection PHA 03/07/24 Logged (Lasix Injection) 22:00 Alprazolam Tablet PHA 03/07/24 Logged (Xanax Tablet) 14:30 Lamotrigine Tablet PHA 03/07/24 Logged (Lamictal Tablet) 18:00 Losartan Tablet PHA 03/08/24 Logged (Cozaar Tablet) 10:00 Metoprolol Tartrate PHA 03/07/24 Logged Tablet (Lopressor Ta 22:00 (Nf) Buspirone Hcl PHA 03/07/24 Logged 18:00 (Nf) Digoxin PHA 03/07/24 Logged 18:00 (Nf) Potassium PHA 03/08/24 Logged Chloride (Potassium 10:00 Albuterol Medneb PHA 03/07/24 Logged (Ventolin Medneb) 14:30 Ipratropium Medneb PHA 03/07/24 Logged (Atrovent Medneb) 14:30 Methylprednisolone PHA 03/07/24 Logged Sod Succ (Solu Medrol 14:30 Admit ADMIT 03/07/24 Transmitted 14:24 Code Status CODE 03/07/24 Transmitted 14:24 Vital Signs RALPH 03/07/24 In Process 14:24 Review Orders With [facility] 03/07/24 In Process Adm.Md 14:24 Consistent DIET 03/07/24 Transmitted Carb(Ccho)Diabetes Dinner Alum & Mag PHA 03/07/24 Logged Hydrox-Simethicone 14:30 Docusate Sodium PHA 03/07/24 Logged Capsule (Colace 14:30 Acetaminophen Tablet PHA 03/07/24 Logged (Tylenol Tablet) 14:30 Notify Md Of Changes [facility] 03/07/24 In Process From Base 14:24 Advance Directive RALPH 03/07/24 In Process 14:24 Basic Metabolic Panel LAB 03/08/24 Verified 04:00 Complete Blood Count LAB 03/08/24 Verified 04:00 Patient Condition ORDERS 03/07/24 Transmitted 14:24 Allergies RALPH 03/07/24 In Process 14:24 Hydrocodone-Acet PHA 03/07/24 Logged 5/325mg Tab (Ezel 14:30 Ondansetron Hcl PHA 03/07/24 Logged (Zofran) 14:30 Morphine Sulfate PHA 03/07/24 Logged Injection 14:30 Notify Md Of Changes [facility] 03/07/24 In Process From Base 14:24 Oxygen By Nasal RT 03/07/24 Transmitted Cannula 14:24 Problem List: (1) Peripheral edema (2) Acute respiratory failure (3) CHF exacerbation (4) Pneumonia Date of Service: Mar 07, 2024 Billing Provider: AUGIE DEE MD Common Visit Codes: 32164-[id number] INP/OBS CARE (HIGH) AUGIE DEE MD Mar 07, 2024 14:59
[2024-03-07] MEDS: methylPREDNISolone SOD SUCC 40 MG/ML VL IV SCH (15:47)
[2024-03-07] MEDS: busPIRone HCL 10 MG TAB PO SCH (18:00)
[2024-03-07] MEDS: DIGOXIN 0.125 MG TAB PO SCH (18:00)
[2024-03-07] MEDS: FUROSEMIDE 40 MG/4 ML VIAL IV SCH (18:00)
[2024-03-07] MEDS: lamoTRIgine 100 MG TAB PO SCH (18:00)
[2024-03-07] MEDS: IPRATROPIUM BROM 0.5 MG/2.5ML INH SOL NEB SCH (18:49)
[2024-03-07] MEDS: ALBUTEROL SULF 2.5 MG/0.5ML(0.5%) NEB SOLN NEB PRN (18:49)
[2024-03-08] VITALS (17 sets, daily range): BP systolic 88–127; BP diastolic 52–78; PULSE 91–119; RESP 16–20; TEMP 97.3–98.6; O2SAT 94–99
[2024-03-08] MEDS ORDERED: CARV6.2517 PO (00:36)
[2024-03-08] MEDS: METOPROLOL TARTRATE 50 MG TAB PO SCH (01:29)
[2024-03-08 06:00] LABS: Basophils # (auto) 0 10 ^3/uL (0-0.2); Basophils % (auto) 0.1 % (0.0-2.0); Eosinophils # (auto) 0 10 ^3/uL (0-0.8); Hematocrit 29.5 % (36.0-46.0); Hemoglobin 9.6 g/dL (12.2-16.2); Lymphocytes # (auto) 0.3 10 ^3/uL (0.4-5.4); Lymphocytes % (auto) 7.4 % (10.0-50.0); Mean Corpuscular Hemoglobin 25.3 pg (28.0-32.0); Mean Corpuscular Hgb Conc. 32.4 g/dL (32.0-36.0); Mean Corpuscular Volume 78.2 fL (80.0-100.0); Monocytes # (auto) 0 10 ^3/uL (0-1.3); Neutrophils % (auto) 91.5 % (37.0-80.0); Nucleated Red Blood Cells % 0.2 %; Platelet Count (auto) 162 10^3/uL (140-450); Red Blood Cells 3.78 10^6/uL (4.0-5.20); Red Cell Distribution Width 16.8 % (11.8-14.3); White Blood Cell 4.4 10^3/uL (4.4-10.8)
[2024-03-08 06:18] LABS: Chloride 105 mmol/L (98-107); Sodium 140 mmol/L (136-145)
[2024-03-08 06:19] LABS: Anion Gap 11 (5-15); Calcium 9.9 mg/dL (8.7-10.4); Carbon Dioxide 24 mmol/L (20-31)
[2024-03-08 06:24] LABS: BUN/Creatinine Ratio 22.1 (10.0-20.0); Blood Urea Nitrogen 27 mg/dL (9-23); Glucose 155 mg/dL (74-106)
[2024-03-08] MEDS: LOSARTAN POTASSIUM 25 MG TAB PO SCH (10:00)
[2024-03-08] MEDS: AZITHROMYCIN 250 MG TAB PO SCH (10:45)
[2024-03-08] MEDS: POTASSIUM CHL 10 Meq TABLET PO SCH (10:47)
--- NOTE | 2024-03-08 11:28 | DVH ---
Procedure: CT CHEST WITHOUT CONTRAST Reason for study/Clinical History: Shortness of breath. Comparison Study: CTA chest 10/15/2023 Exam Date: 03/08/2024 10:55 AM TECHNIQUE: Multidetector CT of the chest was performed from the lung apices to the upper abdomen with out the use of intravenous contract. Axial, coronal and sagittal multiplanar reformats were performed . Radiation Dose Information: CT Dose: CTDI volume is 6.48 mGy. Dose-length product is 223.5 mGy*cm The dose indicators for CT are the volume Computed Tomography (CT) Dose Index (CTDIvol) and the Dose Length Product (DLP), and are measured in units of mGy and mGy-cm, respectively. These indicators are not patient dose, but values generated from the CT scanner acquisition factors. The report includes radiation exposure data for exposures received during this examination. Radiation optimization: All CT scans at this facility use at least one of these dose optimization kenny hniques: automated exposure control mA and/or kV adjustment per patient size (includes targeted exam s where dose is matched to clinical indication) or iterative reconstruction. FINDINGS Lungs: There are bilateral pleural effusions . There is atelectasis versus airspace disease in the bi lateral lung bases, [id number]. The remaining lungs appear within normal limits without consolidation, pulmonary nodule or mass. The central airways are clear. Heart/Vascular Structures: Normal heart size. No pericardial effusion. Lymph Nodes: There are stable mediastinal lymph nodes. There is no axillary lymphadenopathy. Pleura: No pleural effusion or significant pneumothorax. Musculoskeletal: There is exaggerated thoracic kyphosis. There are multilevel chronic appearing compr ession fractures in the thoracic spine. There are multilevel degenerative changes. Soft tissues: There are bilateral breast implants. There are surgical clips in the right axilla. Upper abdomen: Visualized solid abdominal viscera grossly appears unremarkable. IMPRESSION: 1. Bilateral pleural effusions. There is atelectasis versus airspace disease in the bilateral lung ba ses, [id number]-right. HS:Y
--- NOTE | 2024-03-08 11:52 | DVH ---
Bilateral lower extremity venous duplex Clinical History: dvt Comparison: None Technique: Duplex Doppler evaluation of the deep venous systems of both lower extremities from the common femora l veins to the popliteal veins including color Doppler and spectral/pulsed waveform analysis was perf ormed. Findings: RIGHT SIDE: The common femoral vein demonstrates appropriate compressibility and waveform variability . There is compressibility/patency of the great saphenous vein at the proximal thigh . The femoral vein demonstrates appropriate compressibility and waveform variability . The deep femoral vein demonstrates appropriate compressibility and waveform variability . The popliteal vein demonstrates appropriate compressibility and waveform variability . There is color flow at the tibioperoneal trunk and in the posterior tibial vein. LEFT SIDE: The common femoral vein demonstrates appropriate compressibility and waveform variability . There is compressibility/patency of the great saphenous vein at the proximal thigh . The femoral vein demonstrates appropriate compressibility and waveform variability . The deep femoral vein demonstrates appropriate compressibility and waveform variability . The popliteal vein demonstrates appropriate compressibility and waveform variability . There is color flow at the tibioperoneal trunk and in the posterior tibial vein. Impression: 1. No right or left femoropopliteal venous thrombosis.
--- NOTE | 2024-03-08 12:56 | DVHPN2 ---
Subjective Seen and examined at bedside. Patient is on 4-5 Liters oxygen. Patient uses 2L oxygen at home. Still short of breath with speaking, Changes from previous H/P or p: No Changes Eyes: No Pain, No Vision change, No Conjunctivae inflammation, No Eyelid inflammation, No Other, No Redness ENT: No Ear pain, No Ear discharge, No Nose pain, No Nose discharge, No Nose congestion, No Mouth pain, No Mouth swelling, No Throat pain, No Throat swelling, No Other Cardiovascular: No Chest Pain, No Palpitations, No Orthopnea, No Paroxysmal Noc. Dyspnea, No Edema, No Lt Headedness, No Other Respiratory: Cough; No Dry; Shortness of breath; No SOB with excertion, No Wheezing, No Hemoptysis, No Pleuritic Pain, No Sputum, No Other Gastrointestinal: No Nausea, No Vomiting, No Abdominal Pain, No Diarrhea, No Constipation, No Melena, No Hematochezia, No Other Genitourinary: No Dysuria, No Frequency, No Incontinence, No Hematuria, No Retention, No Other Musculoskeletal: No other, No neck pain, No shoulder pain, No arm pain, No back pain, No hand pain, No leg pain, No foot pain Skin: No Rash, No Lesions, No Jaundice, No Bruising, No Other Objective Vitals Vital Signs Date Time Temp Pulse Resp B/P (MAP) Pulse Ox O2 Delivery O2 Flow Rate FiO2 03/08/24 11:24 112 16 97 03/08/24 10:46 105/52 03/08/24 09:00 97.3 97.3 03/08/24 06:21 Nasal Cannula* 4 36 Intake/Output Intake and Output 03/08/24 07:00 Intake Total 550 ml Output Total 0 ml Balance 550 ml Intake Oral 300 ml IV Total 250 ml Output Urine Total 0 ml Medications Current Medications Medications Dose Ordered Sig/Cortney Route Start Time Stop Time Status Last Admin Dose Admin Ceftriaxone Sodium 50 ml @ 100 mls/hr DAILY IV 03/08/24 10:00 Azithromycin 500 mg DAILY PO 03/08/24 10:00 03/08/24 10:45 500 MG Furosemide 40 mg BIDD IV 03/07/24 18:00 03/08/24 05:15 40 MG Alprazolam 0.25 mg Q4HR PRN PO 03/07/24 14:30 Lamotrigine 100 mg QPM PO 03/07/24 18:00 Losartan Potassium 25 mg DAILY PO 03/08/24 10:00 Metoprolol Tartrate 50 mg BID PO 03/07/24 22:00 03/08/24 10:46 50 MG Buspirone HCl 30 mg QPM PO 03/07/24 18:00 Digoxin 0.25 mg QPM PO 03/07/24 18:00 Potassium Chloride 10 meq DAILY PO 03/08/24 10:00 03/08/24 10:47 10 MEQ Albuterol 2.5 mg Q4HWA PRN NEB 03/07/24 14:30 03/08/24 11:14 2.5 MG Methylprednisolone Sodium Succinate 40 mg BID IV 03/07/24 14:30 03/08/24 10:43 40 MG Al Hydrox/Mg Hydrox/Simethicone 30 ml Q6HP PRN PO 03/07/24 14:30 Docusate Sodium 100 mg BIDPRN PRN PO 03/07/24 14:30 Acetaminophen 650 mg Q6HP PRN PO 03/07/24 14:30 Acetaminophen/ Hydrocodone Bitart 1 tab Q4HP PRN PO 03/07/24 14:30 Ondansetron HCl 4 mg Q4HP PRN IV 03/07/24 14:30 Morphine Sulfate 2 mg Q4HPRN PRN IV 03/07/24 14:30 Ipratropium [place] 0.5 mg Q4HWA NEB 03/07/24 18:00 03/08/24 11:14 0.5 MG Laboratory Results Laboratory Tests 03/08/24 05:03 Chemistry Test 03/08/24 05:03 Calcium Level 9.9 mg/dL (8.7-10.4) Coagulation Test 03/08/24 10:54 D-Dimer, Quantitative 1.16 mg/L FEU (0.0-0.49) H Urinalysis Test 03/07/24 03:04 Urine Color Light-yellow (Yellow) Urine Clarity Clear (Clear) Urine pH 6.0 (5.0-9.0) Urine Specific [place] 1.010 (1.001-1.035) Urine Protein Negative (Negative) Urine Ketones Negative (Negative) Urine Blood Negative /uL (Negative) Urine Nitrite Negative (Negative) Urine Bilirubin Negative (Negative) Urine Urobilinogen Normal mg/dL (Negative) Urine Leukocyte Esterase Negative /uL (Negative) Urine RBC 1 /hpf (0 - 4) Urine WBC 3 /hpf (0 - 5) Urine Squamous Epithelial Cells Few /hpf (<5) Urine Bacteria None seen /hpf (None Seen) Urine Glucose Normal mg/dL (Normal) Assessment/Plan Assessment/Plan # A-Fibb with RVR - Tele Monitor - ECHO - Cont Digoxin - Start Amio PO # Acute Systolic CHF - Lasix - Monitor I&O # Acute on Chronic Resp Failure - Titrate Oxygen Tolerated # Pulm Edema Critical care time 45 mins Plan discussed with: Patient My Orders Orders - HANNAH LORA MD Procedure Category Date Status Time Chest Without Contrast CT 03/08/24 Resulted 10:32 Bilat Lower Dvt US 03/08/24 Resulted 10:32 Mrsa Screen NICOLAS 03/08/24 In Process 09:00 Echo 2d Mode Cardiac US 03/08/24 Logged DOP 12:48 Date of Service: Mar 08, 2024 Billing Provider: HANNAH LORA MD Common Visit Codes: [id number] CARE 30-74 MIN HANNAH OLRA MD Mar 08, 2024 12:56
--- NOTE | 2024-03-08 16:13 | DVHSR ---
APPROVED REPORT EXAM: Two-dimensional and M-mode echocardiogram with Doppler and color Doppler. Blood Pressure: 108/75 mmHg INDICATION CHF Surgery/Intervention Pacemaker: RISK [employer]ORS Height: 5'5", Weight: 144 DIMENSIONS LVDd5.1 (3.8-5.7cm)LA (2D)4.4 (1.9-4.0cm)Aortic Root3.3 (2.0-3.7cm) LVDs4.4 (2.5-4.0cm)LA (MM) (1.9-4.0cm)Aortic Cusp Exc1.5 (1.5-2.0cm) EF (%) 25.0 (55-70%)Rt. Atrium4.6 (1.9-4.0cm)Asc. Aorta cm IVSd0.9 (0.7-1.1cm)RV (D) (1.8-2.4cm) PWd1.0 (0.7-1.1cm) Mitral Valve MitralMitral Stenosis E wave1.16m/sMV Mean GR.mmHg E/A ratio0.02D MVAcm2 Aortic Valve Aortic ValveAortic Stenosis V10.72m/[place] Mean GR.2mmHg V20.95m/[place] Peak GR.4mmHg LVOT Diameter1.8 (1.8-2.4cm)Doppler AVA1.93cm2 Tricuspid Valve TR Velocity3.19m/s [id number] Conclusion Severely dilated left ventricle. Severely reduced left ventricular systolic function estimated eject ion fraction of 25%. There is global wall akinesia. Severely dilated right ventricle. Severely reduced right ventricular systolic function. Moderately elevated right ventricular systolic pressure 55 mm of mercury. An ICD lead is seen in place traversi ng the right atrium to the right ventricle. Moderately dilated right and left atrium. Moderately severe mitral valve regurgitation. Moderately severe tricuspid valve regurgitation. The aortic valve appears normal in structure and function. There is mild aortic valve sclerosis. The pulmonary valve is grossly normal. No pericardial effusion. New
[2024-03-08] MEDS: AMIODARONE HCL 200 MG TAB PO ONE (16:21)
[2024-03-08] MEDS: cefTRIAXone 1GM/50ML D5W 50 ML IV SCH (16:22)
--- NOTE | 2024-03-08 16:54 | DVHINCON2 ---
Date Seen: Mar 08, 2024 Referring Physician MD Suzanna Reason for Consultation A-fib History of Present Illness This is a pleasant 78-year-old female who presented to the emergency room via EMS with a chief complaint of shortness of breath. The patient complains of progressive shortness of breath associated with SAHA, PND, and bilateral lower extremity edema. Denies chest pain, palpitations, diaphoresis, or syncopal events. She was found by EMS with a SpO2 of 71% on CPAP for which she was subsequently placed on O2 at 10 LPM via NRB mask with improved O2Sats up to 91%. States she is compliant with her medical therapy at home and denies any dietary indiscretions. She underwent a 12-lead electrocardiogram revealing an atrioventricular paced rhythm with underlined atrial fibrillation at a c ontrolled rate. 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 The patient is not aware of any cardiac catheterizations in the past. Follows up with Cardiology at [facility]. Significant medical history includes congestive heart failure, paroxysmal atrial fibrillation on amiodarone & digoxin/off AC therapy, status post dual-chamber pacemaker implantation ([employer]tronic) in 2000 status post generator and right atrial lead exchange ([employer]) in 2019, COPD, obstructive sleep apnea on CPAP HS, peripheral neuropathy, chronic kidney disease, and anemia in chronic disease. Past Medical History Past medical history reviewed. No other significant than mentioned above. Past Surgical History Dual-chamber pacemaker implantation (Medtronic) in 2000 Status post generator and right atrial lead exchange ([employer]) in 2019 Family History: Alzheimer's disease G8 MOTHER FH: brain cancer G8 MOTHER FH: congestive heart failure G8 SISTER FH: emphysema G8 FATHER FH: kidney disease G8 SISTER Family History Family history reviewed. Social History Denies the use of illicit drugs, alcohol, or tobacco use. Allergies: Coded Allergies: Lisinopril (Verified Allergy, Unknown, 03/30/18) Sulfa Antibiotics (Verified Allergy, Unknown, 03/30/18) Home Meds Active Scripts Furosemide (Furosemide) 40 Mg Tab, 1 TAB PO DAILY for 15 Days, #15 TAB 5 Refills Prov:SUE KNOWLES 08/06/22 Reported Medications Carvedilol (Coreg) 6.25 Mg Tab, 1 TAB PO BID, #180 TAB 1 Refill 03/08/24 Benzonatate (Benzonatate) 100 Mg Cap, 1-2 CAP PO Q4HR PRN for FOR COUGH, #60 CAP 03/30/18 Potassium Chloride (POTASSIUM CHLORIDE CR) 10 Meq Tb, 1 TAB PO DAILY, #30 TAB 5 Refills 03/30/18 Losartan Potassium (Losartan Potassium) 25 Mg Tab, 1 TAB PO DAILY, #90 TAB 1 Refill 03/30/18 Metoprolol Tartrate (LOPRESSOR TABLET) 50 Mg Tb, 1 TAB PO BID, #60 TAB 5 Refills 03/30/18 Alprazolam (Alprazolam) 0.25 Mg Tab, 0.25 MG PO PRN for ANXIETY, TAB 03/30/18 Lamotrigine (Lamotrigine) 100 Mg Tab, 100 MG PO QPM, TAB 03/30/18 Buspirone Hcl (Buspirone Hcl) 15 Mg Tab, 30 MG PO QPM, TAB 03/30/18 Discontinued Reported Medications Digoxin (Digoxin) 250 Mcg Tab, 250 MCG PO QPM, TAB 03/30/18 Home Meds Home medications reviewed. Current Medications Current Medications Medications (Trade) Dose Ordered Sig/Cortney Route PRN Reason Start Time Stop Time Status Last Admin Ceftriaxone Sodium 50 ml @ 100 mls/hr DAILY IV 03/08/24 10:00 Azithromycin (Zithromax Tablet) 500 mg DAILY PO 03/08/24 10:00 03/08/24 12:58 DC 03/08/24 10:45 Furosemide (Lasix Injection) 40 mg BIDD IV 03/07/24 18:00 03/08/24 05:15 Lamotrigine (LaMICtal TABLET) 100 mg QPM PO 03/07/24 18:00 Losartan Potassium (Cozaar Tablet) 25 mg DAILY PO 03/08/24 10:00 Metoprolol Tartrate (Lopressor Tablet) 50 mg BID PO 03/07/24 22:00 03/08/24 10:46 Buspirone HCl (Buspar Tablet) 30 mg QPM PO 03/07/24 18:00 Digoxin (Lanoxin Tablet) 0.25 mg QPM PO 03/07/24 18:00 Potassium Chloride (Klor-Con Tablet) 10 meq DAILY PO 03/08/24 10:00 03/08/24 10:47 Ipratropium [place] (Atrovent Medneb) 0.5 mg Q4HWA NEB 03/07/24 18:00 03/08/24 14:02 Amiodarone HCl (Cordarone Tablet) 400 mg Q12HR PO 03/08/24 22:00 Review of Systems Constitutional: No symptom reported Ears, Nose, & Throat: No symptom reported Eyes: No symptom reported Neurological: No symptoms reported Pulmonary/Respiratory: Shortness of breath Cardiovascular: No symptom reported Gastrointestinal: No symptom reported Genitourinary: No symptom reported Musculoskeletal: No symptom reported Skin: No symptom reported Psychiatric: No symptom reported Endocrine: No symptom reported Hemotologic/Lymphatic: No symptom reported Vital Signs Vital Signs Date Time Temp Pulse Resp B/P (MAP) Pulse Ox O2 Delivery O2 Flow Rate FiO2 03/08/24 14:08 98 18 98 03/08/24 14:02 Nasal Cannula* 4 36 03/08/24 12:30 97.5 108/75 (86) 97.5 Physical Exam General Appearance: Cooperative. Well developed. Well nourished. Mild acute respiratory distress Head Exam: Normal inspection Neck Exam: Normal inspection. Non-tender. Normal alignment Pulmonary/Respiratory: Chest non-tender. Crackles to bilateral breath sounds Cardiovascular/Chest: Regularly irregular rate and rhythm. Atrial fibrillation, controlled rate. No murmurs. No JVD. Peripheral Pulses: 2+ Radial (R). 2+ Radial (L). 2+ Pedal (R). 2+ Pedal (L) Abdominal Exam: Normal bowel sounds. Soft. Nontender. No hepatospenomegaly. No masses Ankle Exam: Positive ankle edema, 3+ Lower extremities: Positive lower extremity edema, 3+ Neuro/Mental Status: A&O x4. Coherent Thoughts/Psych: Normal thought pattern. Appropriate mood and affect. Pleasant Appearance: Mild acute respiratory distress Skin Exam: Normal inspection. Normal color. Warm. Dry Labs/Diagnostic Data Labs Test 03/08/24 10:54 03/08/24 05:03 03/07/24 04:28 03/07/24 03:04 Range/Units D-Dimer, Quantitative 1.16 H 0.0-0.49 mg/L FEU White Blood Count 4.4 4.4-10.8 10^3/uL Red Blood Count 3.78 L 4.0-5.20 10^6/uL Hemoglobin 9.6 L 12.2-16.2 g/dL Hematocrit 29.5 L 36.0-46.0 % Mean Corpuscular Volume 78.2 L 80.0-100.0 fL Mean Corpuscular Hemoglobin 25.3 L 28.0-32.0 pg Mean Corpuscular Hemoglobin Concent 32.4 32.0-36.0 g/dL Red Cell Distribution Width 16.8 H 11.8-14.3 % Platelet Count 162 140-450 10^3/uL Mean Platelet Volume 7.9 6.9-10.8 fL Neutrophils (%) (Auto) 91.5 H 37.0-80.0 % Lymphocytes (%) (Auto) 7.4 L 10.0-50.0 % Monocytes (%) (Auto) 1.0 0.0-12.0 % Eosinophils (%) (Auto) 0.0 0.0-7.0 % Basophils (%) (Auto) 0.1 0.0-2.0 % Neutrophils # (Auto) 4.0 1.6-8.6 10 ^3/uL Lymphocytes # (Auto) 0.3 L 0.4-5.4 10 ^3/uL Monocytes # (Auto) 0 0-1.3 10 ^3/uL Eosinophils # (Auto) 0 0-0.8 10 ^3/uL Basophils # (Auto) 0 0-0.2 10 ^3/uL Nucleated Red Blood Cells 0.2 % Sodium Level 140 136-145 mmol/L Potassium Level 4.0 3.5-5.1 mmol/L Chloride Level 105 98-107 mmol/L Carbon Dioxide Level 24 20-31 mmol/L Anion Gap 11 5-15 Blood Urea Nitrogen 27 H 9-23 mg/dL Creatinine 1.22 H 0.550-1.02 mg/dL Glomerular Filtration Rate Calc 46 >90 mL/min BUN/Creatinine Ratio 22.1 H 10.0-20.0 Serum Glucose 155 H 74-106 mg/dL Calcium Level 9.9 8.7-10.4 mg/dL Thyroid Stimulating Hormone (TSH) 1.25 0.55-4.78 uIU/mL Digoxin Level < 0.14 L 0.8-2 ng/mL Troponin I High Sensitivity 23 </=34 ng/L Urine Color Light-yellow Yellow Urine Clarity Clear Clear Urine pH 6.0 5.0-9.0 Urine Specific [place] 1.010 1.001-1.035 Urine Protein Negative Negative Urine Ketones Negative Negative Urine Blood Negative Negative /uL Urine Nitrite Negative Negative Urine Bilirubin Negative Negative Urine Urobilinogen Normal Negative mg/dL Urine Leukocyte Esterase Negative Negative /uL Urine RBC 1 0 - 4 /hpf Urine WBC 3 0 - 5 /hpf Urine Squamous Epithelial Cells Few <5 /hpf Urine Bacteria None seen None Seen /hpf Urine Glucose Normal Normal mg/dL Test 03/07/24 02:20 Range/Units B-Type Natriuretic Peptide 1627.79 0-100 pg/mL Assessment Acute on chronic decompensated HFrEF Likely nonischemic cardiomyopathy with EF of 25% Paroxysmal atrial fibrillation, Stage III, on amiodarone/digoxin and off AC therapy Presence of dual-chamber permanent pacemaker ([employer]) Acute on chronic hypoxic respiratory failure with CHF/PNA Peripheral neuropathy Chronic kidney disease Anemia and chronic disease Plan/Recommendation We will continue the following plan/recommendations (Dr. Gunter): * Echocardiogram revealed: Severely dilated left ventricle. Severely reduced left ventricular systolic function estimated ejection fraction of 25%. There is global wall akinesia. Severely dilated right ventricle. Severely reduced right ventricular systolic function. Moderately elevated right ventricular systolic pressure 55 mm of mercury. A PPM lead is seen in place traversing the right atrium to the right ventricle. Moderately dilated right and left atrium. Moderately severe mitral valve regurgitation. Moderately severe tricuspid valve regurgitation. The aortic valve appears normal in structure and function. There is mild aortic valve sclerosis. The pulmonary valve is grossly normal. No pericardial effusion. * Initiate GDMT for CHF and uptitrate as tolerated * Strict I&Os. Daily weight. Maintain fluids restrictions * Preload and afterload reduction, lasix * Reestablish ASA QD. Declines NOAC/AC therapy * [id number] Score 5. HAS-BLED Score 2. * Patient aware she is at high-risk for acute CVAs * ABX therapy for PNA per primary care team * Monitor ECG changes and notify If no improvement in LV function after three months of GDMT for CHF, the patient may qualify for an ICD implantation. Thank you for allowing us to participate in this patient's care. Please call if you have any questions or concerns. This medical document was created using an electronic medical record system with voice recognition software and computerized dictation system. Although this document has been carefully reviewed, there might still be some phonetic and typographical errors. Occasional wrong-word or ``sound-alike substitutions may have occurred due to the inherent limitations of voice recognition software. These areas are purely typographical due to imperfections of the software programs and do not reflect any compromise in the patient's medical care. Please read the chart carefully and recognize, using context, where these substitutions have occurred. Plan discussed with: Patient, Other Date of Service: Mar 08, 2024 Billing Provider: JUANITA GUNTER MD Cardiology Common Codes: [id number] INP/OBS CARE (High) ENZO CHUA FLIGHT OPERATIONS ENGINEER Mar 08, 2024 16:54
[2024-03-08] MEDS: DIGOXIN 0.125 MG TAB PO SCH (17:20)
[2024-03-08] MEDS: ACETAMINOPHEN 325 MG TAB PO PRN (20:11)
[2024-03-08] MEDS: DIGOXIN 0.125 MG TAB PO ONE (20:15)
[2024-03-08] MEDS ORDERED: AMIODARONE HCL 200 MG TAB PO SCH (22:00)
[2024-03-08] MEDS: AMIODARONE HCL 200 MG TAB PO SCH (22:14)
[2024-03-08] MEDS: CARVEDILOL 3.125 MG TAB PO SCH (23:26)
[2024-03-09] VITALS (18 sets, daily range): BP systolic 101–118; BP diastolic 61–82; PULSE 82–107; RESP 16–20; TEMP 97.4–98.2; O2SAT 93–98
[2024-03-09 07:17] LABS: Alanine Aminotransferase 25 U/L (7-40); Albumin 4.6 g/dL (3.2-4.8); Alkaline Phosphatase 118 U/L (46-116); Anion Gap 9 (5-15); Aspartate Aminotransferase 19 U/L (13-40); BUN/Creatinine Ratio 26.5 (10.0-20.0); Blood Urea Nitrogen 36 mg/dL (9-23); Calcium 10.2 mg/dL (8.7-10.4); Carbon Dioxide 27 mmol/L (20-31); Chloride 100 mmol/L (98-107); Glucose 170 mg/dL (74-106); Magnesium 2.3 mg/dL (1.6-2.6); Potassium 4.1 mmol/L (3.5-5.1); Sodium 136 mmol/L (136-145)
[2024-03-09 07:18] LABS: Bilirubin, Total 0.5 mg/dL (0.2-1.0); Total Protein 6.6 g/dL (5.7-8.2)
[2024-03-09] MEDS: POTASSIUM CHL 20 Meq TABLET PO SCH (10:00)
[2024-03-09] MEDS: SPIRONOLACTONE 25 MG TAB PO SCH (10:43)
[2024-03-09] MEDS: ASPirin 81 mg TAB PO SCH (10:43)
[2024-03-09] MEDS: EMPAGLIFLOZIN 10 MG TAB PO SCH (10:44)
--- NOTE | 2024-03-09 11:24 | DVHPN2 ---
Consult Progress Note Subjective Patient reports: No new complaints Review of Systems: HEENT:Normal, HEENT:Abnormal, CVS:Abnormal, RESPIRATORY:Abnormal, GI:Normal, :Abnormal Objective vital signs Vital Sign Date Time Temp Pulse Resp B/P (MAP) Pulse Ox O2 Delivery O2 Flow Rate FiO2 03/09/24 10:48 96 113/55 03/09/24 09:31 18 98 03/09/24 08:29 97.4 97.4 03/09/24 06:02 Nasal Cannula* 5 40 Total Intake and Output 03/08/24 03/08/24 03/09/24 15:00 23:00 07:00 Intake Total 850 ml 480 ml Output Total 520 ml Balance 850 ml -40 ml medications Current Medications Medications Dose Ordered Sig/Cortney Route Start Time Stop Time Status Last Admin Dose Admin Ceftriaxone Sodium 50 ml @ 100 mls/hr DAILY IV 03/08/24 10:00 03/09/24 10:42 100 MLS/HR Furosemide 40 mg BIDD IV 03/07/24 18:00 03/09/24 06:43 40 MG Alprazolam 0.25 mg Q4HR PRN PO 03/07/24 14:30 Lamotrigine 100 mg QPM PO 03/07/24 18:00 Losartan Potassium 25 mg DAILY PO 03/08/24 10:00 Metoprolol Tartrate 50 mg BID PO 03/07/24 22:00 03/09/24 10:48 50 MG Buspirone HCl 30 mg QPM PO 03/07/24 18:00 Albuterol 2.5 mg Q4HWA PRN NEB 03/07/24 14:30 03/09/24 09:25 2.5 MG Methylprednisolone Sodium Succinate 40 mg BID IV 03/07/24 14:30 03/09/24 10:43 40 MG Al Hydrox/Mg Hydrox/Simethicone 30 ml Q6HP PRN PO 03/07/24 14:30 Docusate Sodium 100 mg BIDPRN PRN PO 03/07/24 14:30 Acetaminophen 650 mg Q6HP PRN PO 03/07/24 14:30 03/08/24 20:11 650 MG Acetaminophen/ Hydrocodone Bitart 1 tab Q4HP PRN PO 03/07/24 14:30 Ondansetron HCl 4 mg Q4HP PRN IV 03/07/24 14:30 Morphine Sulfate 2 mg Q4HPRN PRN IV 03/07/24 14:30 Ipratropium [place] 0.5 mg Q4HWA NEB 03/07/24 18:00 03/09/24 09:25 0.5 MG Amiodarone HCl 200 mg Q12HR PO 03/08/24 22:00 03/09/24 10:44 200 MG Digoxin 0.125 mg QPM PO 03/08/24 18:00 Potassium Chloride 20 meq DAILY PO 03/09/24 10:00 Carvedilol 6.25 mg Q12HR PO 03/08/24 22:00 03/09/24 10:47 6.25 MG Spironolactone 12.5 mg DAILY PO 03/09/24 10:00 03/09/24 10:43 12.5 MG Empaglifozin 10 mg DAILY PO 03/09/24 10:00 03/09/24 10:44 10 MG Aspirin 81 mg DAILY PO 03/09/24 10:00 03/09/24 10:43 81 MG laboratory and microbiology Laboratory Tests 03/09/24 05:45 03/08/24 05:03 Test 03/09/24 05:45 Range/Units Serum Glucose 170 H 74-106 mg/dL Problem List/Assessment/Plan Problems(with codes): (1) Pneumonia (2) Acute respiratory failure (3) CHF exacerbation (4) Peripheral edema Problem List/Assessment/Plan This is a pleasant 78-year-old female who presented to the emergency room via EMS with a chief complaint of shortness of breath. The patient complains of progressive shortness of breath associated with SAHA, PND, and bilateral lower extremity edema. Denies chest pain, palpitations, diaphoresis, or syncopal events. She was found by EMS with a SpO2 of 71% on CPAP for which she was subsequently placed on O2 at 10 LPM via NRB mask with improved O2Sats up to 91%. States she is compliant with her medical therapy at home and denies any dietary indiscretions. She underwent a 12-lead electrocardiogram revealing an atrioventricular paced rhythm with underlined atrial fibrillation at a controlled rate. The patient reports she has been off anticoagulation (Coumadin) given severe ecchymosis and only taking ASA 81 mg QD with primary firebreak cutter making her aware of an increased risk for CVAs. The patient is not aware of any cardiac catheterizations in the past. Follows up with Cardiology at [facility]. Significant medical history includes congestive heart failure, paroxysmal atrial fibrillation on amiodarone & digoxin/off AC therapy, status post dual-chamber pacemaker implantation ([employer]) in 2000 status post generator and right atrial lead exchange ([employer] [employer]) in 2019, COPD, obstructive sleep apnea on CPAP HS, peripheral neuropathy, chronic kidney disease, and anemia in chronic disease. I have discussed with the patient today anticoagulation and she agrees to start Eliquis 2.5 mg twice daily. I would recommend confirming with the pharmacy for received systolic on such regimen given that she has underlying kidney disease with the last creatinine of 1.3. In the meantime we will continue diuresing the patient and continue aggressive medical therapy for CHF exacerbation. Once patient is back to baseline she will be advised to follow-up at [facility]. Plan discussed with: Patient Date of Service: Mar 09, 2024 Billing Provider: JUANITA GUNTER MD Common Visit Codes: [id number] INP/OBS CARE(HIGH) JUANITA GUNTER MD Mar 09, 2024 11:24
--- NOTE | 2024-03-09 17:17 | MEDREC ---
[facility] ASP Intervention Section I [facility] ASP Intervention: Review courses of therapy (PLEASE CONSIDER ADDING COVERAGE FOR MRSA SINCE MRSA NARES POSITIVE IF TREATING FOR PNEUMONIA) NIKKI WOODS PHARMACIST Mar 09, 2024 17:17
--- NOTE | 2024-03-09 17:55 | DVHPN2 ---
Subjective Seen and examined at bedside. Patient is on 5 Liters oxygen. Patient uses 2L oxygen at home. Still short of breath with speaking, started on Eliquis. Changes from previous H/P or p: No Changes Eyes: No Pain, No Vision change, No Conjunctivae inflammation, No Eyelid inflammation, No Other, No Redness ENT: No Ear pain, No Ear discharge, No Nose pain, No Nose discharge, No Nose congestion, No Mouth pain, No Mouth swelling, No Throat pain, No Throat swelling, No Other Cardiovascular: No Chest Pain, No Palpitations, No Orthopnea, No Paroxysmal Noc. Dyspnea, No Edema, No Lt Headedness, No Other Respiratory: No Dry; Shortness of breath; No SOB with excertion, No Wheezing, No Hemoptysis, No Pleuritic Pain, No Sputum, No Other Gastrointestinal: No Nausea, No Vomiting, No Abdominal Pain, No Diarrhea, No Constipation, No Melena, No Hematochezia, No Other Genitourinary: No Dysuria, No Frequency, No Incontinence, No Hematuria, No Retention, No Other Musculoskeletal: No other, No neck pain, No shoulder pain, No arm pain, No back pain, No hand pain, No leg pain, No foot pain Skin: No Rash, No Lesions, No Jaundice, No Bruising, No Other Objective Vitals Vital Signs Date Time Temp Pulse Resp B/P (MAP) Pulse Ox O2 Delivery O2 Flow Rate FiO2 03/09/24 17:25 91 03/09/24 17:19 107/71 03/09/24 16:49 97.4 19 94 97.4 03/09/24 08:00 Nasal Cannula* 4 36 Intake/Output Intake and Output 03/09/24 07:00 Intake Total 1330 ml Output Total 520 ml Balance 810 ml Intake Oral 1280 ml IV Total 50 ml Output Urine Total 520 ml # Voids 2 Exam Gen: in bed NAD Cvs: Irregular Resp: BLAE Abd: Soft, NT, BS+ Community Services Officer: AAO x 4 Medications Current Medications Medications Dose Ordered Sig/Cortney Route Start Time Stop Time Status Last Admin Dose Admin Ceftriaxone Sodium 50 ml @ 100 mls/hr DAILY IV 03/08/24 10:00 03/09/24 10:42 100 MLS/HR Furosemide 40 mg BIDD IV 03/07/24 18:00 03/09/24 17:19 40 MG Alprazolam 0.25 mg Q4HR PRN PO 03/07/24 14:30 Lamotrigine 100 mg QPM PO 03/07/24 18:00 Losartan Potassium 25 mg DAILY PO 03/08/24 10:00 Metoprolol Tartrate 50 mg BID PO 03/07/24 22:00 03/09/24 10:48 50 MG Buspirone HCl 30 mg QPM PO 03/07/24 18:00 Albuterol 2.5 mg Q4HWA PRN NEB 03/07/24 14:30 03/09/24 13:49 2.5 MG Al Hydrox/Mg Hydrox/Simethicone 30 ml Q6HP PRN PO 03/07/24 14:30 Docusate Sodium 100 mg BIDPRN PRN PO 03/07/24 14:30 Acetaminophen 650 mg Q6HP PRN PO 03/07/24 14:30 03/08/24 20:11 650 MG Acetaminophen/ Hydrocodone Bitart 1 tab Q4HP PRN PO 03/07/24 14:30 Ondansetron HCl 4 mg Q4HP PRN IV 03/07/24 14:30 Morphine Sulfate 2 mg Q4HPRN PRN IV 03/07/24 14:30 Ipratropium [place] 0.5 mg Q4HWA NEB 03/07/24 18:00 03/09/24 13:49 0.5 MG Amiodarone HCl 200 mg Q12HR PO 03/08/24 22:00 03/09/24 10:44 200 MG Digoxin 0.125 mg QPM PO 03/08/24 18:00 03/09/24 17:25 0.125 MG Potassium Chloride 20 meq DAILY PO 03/09/24 10:00 Carvedilol 6.25 mg Q12HR PO 03/08/24 22:00 03/09/24 10:47 6.25 MG Spironolactone 12.5 mg DAILY PO 03/09/24 10:00 03/09/24 10:43 12.5 MG Empaglifozin 10 mg DAILY PO 03/09/24 10:00 03/09/24 10:44 10 MG Aspirin 81 mg DAILY PO 03/09/24 10:00 03/09/24 10:43 81 MG Mupirocin 1 applic BID EACHNOSTRI 03/09/24 22:00 03/14/24 21:59 Apixaban 2.5 mg BID PO 03/09/24 22:00 Laboratory Results Laboratory Tests 03/08/24 05:03 03/09/24 05:45 Chemistry Test 03/09/24 05:45 Albumin 4.6 g/dL (3.2-4.8) Calcium Level 10.2 mg/dL (8.7-10.4) Magnesium Level 2.3 mg/dL (1.6-2.6) Total Protein 6.6 g/dL (5.7-8.2) Cardiac Markers Test 03/09/24 05:45 B-Type Natriuretic Peptide 2314.12 pg/mL (0-100) LFT Test 03/09/24 05:45 Alanine Aminotransferase (ALT) 25 U/L (7-40) Alkaline Phosphatase 118 U/L (46-116) H Aspartate Amino Transferase (AST) 19 U/L (13-40) Total Bilirubin 0.5 mg/dL (0.2-1.0) Urinalysis Test 03/07/24 03:04 Urine Color Light-yellow (Yellow) Urine Clarity Clear (Clear) Urine pH 6.0 (5.0-9.0) Urine Specific [place] 1.010 (1.001-1.035) Urine Protein Negative (Negative) Urine Ketones Negative (Negative) Urine Blood Negative /uL (Negative) Urine Nitrite Negative (Negative) Urine Bilirubin Negative (Negative) Urine Urobilinogen Normal mg/dL (Negative) Urine Leukocyte Esterase Negative /uL (Negative) Urine RBC 1 /hpf (0 - 4) Urine WBC 3 /hpf (0 - 5) Urine Squamous Epithelial Cells Few /hpf (<5) Urine Bacteria None seen /hpf (None Seen) Urine Glucose Normal mg/dL (Normal) Microbiology Microbiology Date/Time Source Procedure Growth Status 03/08/24 09:00 Nose MRSA Screen - Final Methicillin Resistant S.aureus Complete Assessment/Plan Assessment/Plan # A-Fibb with RVR - Tele Monitor - ECHO EF 25% - Cont Digoxin - Start Amio PO # Acute Systolic CHF - Lasix - Monitor I&O # Acute on Chronic Resp Failure - Titrate Oxygen Tolerated # Pulm Edema unstable for transfer Plan discussed with: Patient My Orders Orders - HANNAH LORA MD Procedure Category Date Status Time Mupirocin 2% Oint PHA 03/09/24 In Process Mrsa Nares (Bactroban 22:00 Basic Metabolic Panel LAB 03/10/24 Verified 04:00 Complete Blood Count LAB 03/10/24 Verified 04:00 Magnesium LAB 03/10/24 Verified 04:00 Mupirocin 2% Ointment PHA 03/09/24 Verified (Bactroban 2% Oint 22:00 Date of Service: Mar 09, 2024 Billing Provider: HANNAH LORA MD Common Visit Codes: [id number] INP/OBS CARE(HIGH) HANNAH LORA MD Mar 09, 2024 17:55
[2024-03-09] MEDS: APIXABAN 2.5 MG TAB PO SCH (21:43)
[2024-03-09] MEDS ORDERED: MUPIROCIN 2% OINT 15gm or 22gm TOP SCH (22:00)
[2024-03-09] MEDS: MUPIROCIN 2% OINT 15gm or 22gm FOR MRSA NARES EACHNOSTRI SCH (22:31)
[2024-03-10] VITALS (17 sets, daily range): BP systolic 102–117; BP diastolic 63–74; PULSE 68–90; RESP 16–18; TEMP 97.2–98.3; O2SAT 91–100
[2024-03-10 08:03] LABS: Anion Gap 11 (5-15); Calcium 9.7 mg/dL (8.7-10.4); Carbon Dioxide 26 mmol/L (20-31); Chloride 100 mmol/L (98-107); Potassium 3.5 mmol/L (3.5-5.1); Sodium 137 mmol/L (136-145)
[2024-03-10 08:04] LABS: Basophils # (auto) 0 10 ^3/uL (0-0.2); Eosinophils # (auto) 0 10 ^3/uL (0-0.8); Hemoglobin 10.1 g/dL (12.2-16.2); Lymphocytes # (auto) 0.4 10 ^3/uL (0.4-5.4); Monocytes # (auto) 0.3 10 ^3/uL (0-1.3); Nucleated Red Blood Cells % 0.1 %
[2024-03-10 08:07] LABS: Hematocrit 31.5 % (36.0-46.0); Lymphocytes % (auto) 5.9 % (10.0-50.0); Mean Corpuscular Hemoglobin 25.2 pg (28.0-32.0); Mean Corpuscular Volume 78.8 fL (80.0-100.0); Monocytes % (auto) 4.1 % (0.0-12.0); Neutrophils # (auto) 6.9 10 ^3/uL (1.6-8.6); Platelet Count (auto) 189 10^3/uL (140-450); Red Cell Distribution Width 16.9 % (11.8-14.3); White Blood Cell 7.7 10^3/uL (4.4-10.8)
[2024-03-10 08:09] LABS: BUN/Creatinine Ratio 27.7 (10.0-20.0); Blood Urea Nitrogen 38 mg/dL (9-23); Glucose 172 mg/dL (74-106); Magnesium 2.4 mg/dL (1.6-2.6)
--- NOTE | 2024-03-10 13:42 | DVHPN2 ---
Consult Progress Note Date Seen: Mar 10, 2024 Subjective Other Systems: Patient remains in atrial fibrillation with controlled rate on patient monitor. Objective vital signs Vital Sign Date Time Temp Pulse Resp B/P (MAP) Pulse Ox O2 Delivery O2 Flow Rate FiO2 03/10/24 10:51 111/63 03/10/24 10:49 79 03/10/24 09:00 97.5 18 96 97.5 03/10/24 08:00 Nasal Cannula* 4 36 Total Intake and Output 03/09/24 03/09/24 03/10/24 15:00 23:00 07:00 Intake Total 50 ml 1300 ml 400 ml Output Total 350 ml Balance 50 ml 1300 ml 50 ml medications Current Medications Medications Dose Ordered Sig/Cortney Route Start Time Stop Time Status Last Admin Dose Admin Ceftriaxone Sodium 50 ml @ 100 mls/hr DAILY IV 03/08/24 10:00 03/10/24 10:47 100 MLS/HR Furosemide 40 mg BIDD IV 03/07/24 18:00 03/10/24 06:17 40 MG Alprazolam 0.25 mg Q4HR PRN PO 03/07/24 14:30 Lamotrigine 100 mg QPM PO 03/07/24 18:00 Losartan Potassium 25 mg DAILY PO 03/08/24 10:00 03/10/24 10:51 25 MG Buspirone HCl 30 mg QPM PO 03/07/24 18:00 Albuterol 2.5 mg Q4HWA PRN NEB 03/07/24 14:30 03/10/24 06:39 2.5 MG Al Hydrox/Mg Hydrox/Simethicone 30 ml Q6HP PRN PO 03/07/24 14:30 Docusate Sodium 100 mg BIDPRN PRN PO 03/07/24 14:30 Acetaminophen 650 mg Q6HP PRN PO 03/07/24 14:30 03/08/24 20:11 650 MG Acetaminophen/ Hydrocodone Bitart 1 tab Q4HP PRN PO 03/07/24 14:30 Ondansetron HCl 4 mg Q4HP PRN IV 03/07/24 14:30 Morphine Sulfate 2 mg Q4HPRN PRN IV 03/07/24 14:30 Ipratropium [place] 0.5 mg Q4HWA NEB 03/07/24 18:00 03/10/24 06:39 0.5 MG Amiodarone HCl 200 mg Q12HR PO 03/08/24 22:00 03/10/24 10:50 200 MG Digoxin 0.125 mg QPM PO 03/08/24 18:00 03/09/24 17:25 0.125 MG Potassium Chloride 20 meq DAILY PO 03/09/24 10:00 03/10/24 10:50 20 MEQ Carvedilol 6.25 mg Q12HR PO 03/08/24 22:00 03/10/24 10:49 6.25 MG Spironolactone 12.5 mg DAILY PO 03/09/24 10:00 03/10/24 10:51 12.5 MG Empaglifozin 10 mg DAILY PO 03/09/24 10:00 03/10/24 10:53 10 MG Aspirin 81 mg DAILY PO 03/09/24 10:00 03/10/24 10:52 81 MG Mupirocin 1 applic BID EACHNOSTRI 03/09/24 22:00 03/14/24 21:59 03/10/24 10:48 1 APPLIC Apixaban 2.5 mg BID PO 03/09/24 22:00 03/10/24 10:50 2.5 MG Examination: GENERAL:Normal, LUNGS:Normal, CVS:Normal, NEURO:Normal laboratory and microbiology Laboratory Tests 03/10/24 07:08 Test 03/10/24 07:08 Range/Units Serum Glucose 172 H 74-106 mg/dL Problem List/Assessment/Plan Problem List/Assessment/Plan Acute on chronic decompensated HFrEF, NYHA class III Likely nonischemic cardiomyopathy with EF of 25% Paroxysmal atrial fibrillation, Stage III, on amiodarone/digoxin and off AC therapy Presence of dual-chamber permanent pacemaker ([employer]) Acute on chronic hypoxic respiratory failure with CHF/PNA Peripheral neuropathy Chronic kidney disease Anemia and chronic disease Plan/Recommendation (Dr. Gunter): * Echocardiogram revealed: Severely dilated left ventricle. Severely reduced left ventricular systolic function estimated ejection fraction of 25%. There is global wall akinesia. Severely dilated right ventricle. Severely reduced right ventricular systolic function. Moderately elevated right ventricular systolic pressure 55 mm of mercury. A PPM lead is seen in place traversing the right atrium to the right ventricle. Moderately dilated right and left atrium. Moderately severe mitral valve regurgitation. Moderately severe tricuspid valve regurgitation. The aortic valve appears normal in structure and function. There is mild aortic valve sclerosis. The pulmonary valve is grossly normal. No pericardial effusion. * Continue GDMT for CHF and uptitrate as tolerated * Strict I&Os. Daily weight. Maintain fluids restrictions * Preload and afterload reduction, lasix and carvedilol * [id number] VASc score: 5, HAS-BLED score: 2 * Beta-shelby for rate control * Continue amiodarone * Initiate Eliquis therapy, patient now agreeable If no improvement in LV function after three months of GDMT for CHF, the patient may qualify for an ICD implantation. There is no further inpatient cardiac workup indicated at this time. The patient is to follow up with her primary carbon dioxide operator within the [facility] in 1-2 weeks post discharge. Thank you for allowing us to participate in this patient's care. Please call if you have any questions or concerns. This medical document was created using an electronic medical record system with voice recognition software and computerized dictation system. Although this document has been carefully reviewed, there might still be some phonetic and typographical errors. Occasional wrong-word or ``sound-alike substitutions may have occurred due to the inherent limitations of voice recognition software. These areas are purely typographical due to imperfections of the software programs and do not reflect any compromise in the patient's medical care. Please read the chart carefully and recognize, using context, where these substitutions have occurred. Plan discussed with: Patient Date of Service: Mar 10, 2024 Billing Provider: JUANITA GUNTER MD Cardiology Common Codes: [id number] [facility] Mar 10, 2024 13:42
[2024-03-11] VITALS (12 sets, daily range): BP systolic 99–121; BP diastolic 61–73; PULSE 68–78; RESP 16–18; TEMP 97.1–97.7; O2SAT 93–100
[2024-03-11] MEDS ORDERED: FURO40TA4 PO (17:04)
[2024-03-11] MEDS ORDERED: APIX2.5T PO (17:04)
[2024-03-11] MEDS ORDERED: POTA-36 PO (17:04)
[2024-03-11] MEDS ORDERED: SPIR25TA PO (17:04)
[2024-03-11] MEDS ORDERED: AMIO200T13 PO (17:04)
--- NOTE | 2024-03-11 17:07 | DVHDS2 ---
Discharge Summary Date of Admission Mar 07, 2024 at 14:24 Date of Discharge: Mar 11, 2024 Admitting Diagnosis A-Fibb with RVR Labs/Diagnostic Data: Laboratory Results Test 03/10/24 07:08 03/09/24 05:45 03/08/24 10:54 03/08/24 05:03 White Blood Count 7.7 10^3/uL (4.4-10.8) Red Blood Count 4.00 10^6/uL (4.0-5.20) Hemoglobin 10.1 g/dL (12.2-16.2) Hematocrit 31.5 % (36.0-46.0) Mean Corpuscular Volume 78.8 fL (80.0-100.0) Mean Corpuscular Hemoglobin 25.2 pg (28.0-32.0) Mean Corpuscular Hemoglobin Concent 32.0 g/dL (32.0-36.0) Red Cell Distribution Width 16.9 % (11.8-14.3) Platelet Count 189 10^3/uL (140-450) Mean Platelet Volume 8.1 fL (6.9-10.8) Neutrophils (%) (Auto) 90.0 % (37.0-80.0) Lymphocytes (%) (Auto) 5.9 % (10.0-50.0) Monocytes (%) (Auto) 4.1 % (0.0-12.0) Eosinophils (%) (Auto) 0.0 % (0.0-7.0) Basophils (%) (Auto) 0.0 % (0.0-2.0) Neutrophils # (Auto) 6.9 10 ^3/uL (1.6-8.6) Lymphocytes # (Auto) 0.4 10 ^3/uL (0.4-5.4) Monocytes # (Auto) 0.3 10 ^3/uL (0-1.3) Eosinophils # (Auto) 0 10 ^3/uL (0-0.8) Basophils # (Auto) 0 10 ^3/uL (0-0.2) Nucleated Red Blood Cells 0.1 % Sodium Level 137 mmol/L (136-145) Potassium Level 3.5 mmol/L (3.5-5.1) Chloride Level 100 mmol/L (98-107) Carbon Dioxide Level 26 mmol/L (20-31) Anion Gap 11 (5-15) Blood Urea Nitrogen 38 mg/dL (9-23) Creatinine 1.37 mg/dL (0.550-1.02) Glomerular Filtration Rate Calc 40 mL/min (>90) BUN/Creatinine Ratio 27.7 (10.0-20.0) Serum Glucose 172 mg/dL (74-106) Calcium Level 9.7 mg/dL (8.7-10.4) Magnesium Level 2.4 mg/dL (1.6-2.6) Total Bilirubin 0.5 mg/dL (0.2-1.0) Aspartate Amino Transferase (AST) 19 U/L (13-40) Alanine Aminotransferase (ALT) 25 U/L (7-40) Alkaline Phosphatase 118 U/L (46-116) B-Type Natriuretic Peptide 2314.12 pg/mL (0-100) Total Protein 6.6 g/dL (5.7-8.2) Albumin 4.6 g/dL (3.2-4.8) D-Dimer, Quantitative 1.16 mg/L FEU (0.0-0.49) Thyroid Stimulating Hormone (TSH) 1.25 uIU/mL (0.55-4.78) Digoxin Level < 0.14 ng/mL (0.8-2) Test 03/07/24 04:28 03/07/24 03:04 Troponin I High Sensitivity 23 ng/L (</=34) Urine Color Light-yellow (Yellow) Urine Clarity Clear (Clear) Urine pH 6.0 (5.0-9.0) Urine Specific [place] 1.010 (1.001-1.035) Urine Protein Negative (Negative) Urine Ketones Negative (Negative) Urine Blood Negative /uL (Negative) Urine Nitrite Negative (Negative) Urine Bilirubin Negative (Negative) Urine Urobilinogen Normal mg/dL (Negative) Urine Leukocyte Esterase Negative /uL (Negative) Urine RBC 1 /hpf (0 - 4) Urine WBC 3 /hpf (0 - 5) Urine Squamous Epithelial Cells Few /hpf (<5) Urine Bacteria None seen /hpf (None Seen) Urine Glucose Normal mg/dL (Normal) Other Laboratory Tests 03/10/24 07:08 Brief Hx & Hospital Course: This is a pleasant 78-year-old female who presented to the emergency room via EMS with a chief complaint of shortness of breath. The patient complains of progressive shortness of breath associated with SAHA, PND, and bilateral lower extremity edema. Denies chest pain, palpitations, diaphoresis, or syncopal events. She was found by EMS with a SpO2 of 71% on CPAP for which she was subsequently placed on O2 at 10 LPM via NRB mask with improved O2Sats up to 91%. States she is compliant with her medical therapy at home and denies any dietary indiscretions. She underwent a 12-lead electrocardiogram revealing an atrioventricular paced rhythm with underlined atrial fibrillation at a controlled rate. The patient reports she has been off anticoagulation (Coumadin) given severe ecchymosis and only taking ASA 81 mg QD with primary airconditioning drafting officer making her aware of an increased risk for CVAs. The patient is not aware of any cardiac catheterizations in the past. Follows up with Cardiology at [facility]. Significant medical history includes congestive heart failure, paroxysmal atrial fibrillation on amiodarone & digoxin/off AC therapy, status post dual-chamber pacemaker implantation ([employer]) in 2000 status post generator and right atrial lead exchange ([employer]) in 2019, COPD, obstructive sleep apnea on CPAP HS, peripheral neuropathy, chronic kidney disease, and anemia in chronic disease. Patient was treated with Lasix IV, Amiodarone. Patient is back on 2L nasal cannula oxygen, patient needs to followup with [facility] in 3-5 days. Patient was started on Eliquis. Operations or Procedures APPROVED REPORT EXAM: Two-dimensional and M-mode echocardiogram with Doppler and color Doppler. Blood Pressure: 108/75 mmHg INDICATION CHF Surgery/Intervention Pacemaker: R[employer]K [employer]ORS Height: 5'5", Weight: 144 DIMENSIONS LVDd 5.1 (3.8-5.7cm) LA (2D) 4.4 (1.9-4.0cm) Aortic Root 3.3 (2.0- 3.7cm) LVDs 4.4 (2.5-4.0cm) LA (MM) (1.9-4.0cm) Aortic Cusp Exc 1.5 (1.5- 2.0cm) EF (%) 25.0 (55-70%) Rt. Atrium 4.6 (1.9-4.0cm) Asc. Aorta cm IVSd 0.9 (0.7-1.1cm) RV (D) (1.8-2.4cm) PWd 1.0 (0.7-1.1cm) Mitral Valve Mitral Mitral Stenosis E wave 1.16m/s MV Mean GR. mmHg E/A ratio 0.0 2D MVA cm2 Aortic Valve Aortic Valve Aortic Stenosis V1 0.72m/s AO Mean GR. 2mmHg V2 0.95m/s AO Peak GR. 4mmHg LVOT Diameter 1.8 (1.8-2.4cm) Doppler JANAE 1.93cm2 Tricuspid Valve TR Velocity 3.19m/s RVSP 56mmHg Conclusion Severely dilated left ventricle. Severely reduced left ventricular systolic function estimated ejection fraction of 25%. There is global wall akinesia. Severely dilated right ventricle. Severely reduced right ventricular systolic function. Moderately elevated right ventricular systolic pressure 55 mm of mercury. An ICD lead is seen in place traversing the right atrium to the right ventricle. Moderately dilated right and left atrium. Moderately severe mitral valve regurgitation. Moderately severe tricuspid valve regurgitation. The aortic valve appears normal in structure and function. There is mild aortic valve sclerosis. The pulmonary valve is grossly normal. No pericardial effusion. New Condition at Discharge: Poor Final Diagnosis/Problems List # A-Fibb with RVR # Acute Systolic CHF - Lasix - Monitor I&O # Acute on Chronic Resp Failure - Titrate Oxygen Tolerated # Pulm Edema Discharge Disposition: Home Discharge Instruct/Medications Activity: No Restrictions, As Tolerated Follow Up/Referral: [facility] Medications: see [facility] Discharge Statement: "Patient was advised to return to the ER or call 911 if any headaches, dizziness, shortness of breath, chest pain, abdominal pain, bleeding, fevers, or worsening of medical condition. Patient was counseled about treatment plan, medications, possible side effects, patientverbalized understanding. All questions were answered to the best of my ability. This discharge took greater then 30 minutes in planning, reviewing documentation, counseling the patient, and discussing with other team members." ASSESSMENT ASSESSMENT Assessment Date of Service: Mar 11, 2024 Billing Provider: HANNAH LORA MD Common Visit Codes: [id number] DISCH DAY >30min HANNAH LORA MD Mar 11, 2024 17:07
== END 2024-03-11 18:25 | disposition home or self-care (01) | DRG 291 ==
LOC: EDBD 01:55 → ER 01:55 → OVERFLOW 14:24 → CENTRAL 22:00 → TELE-CENTR 03-09 07:08
PROVIDERS: ADMIT Hospitalist; ATTEND Internal Medicine
DX: I13.0 Hypertensive heart and chronic kidney disease with heart failure and stage 1 through stage 4 chronic kidney disease, or unspecified chronic kidney disease (principal); I50.43 Acute on chronic combined systolic (congestive) and diastolic (congestive) heart failure; J18.9 Pneumonia, unspecified organism; J96.21 Acute and chronic respiratory failure with hypoxia; J44.0 Chronic obstructive pulmonary disease with (acute) lower respiratory infection; J44.1 Chronic obstructive pulmonary disease with (acute) exacerbation; G62.9 Polyneuropathy, unspecified; I48.0 Paroxysmal atrial fibrillation; N18.9 Chronic kidney disease, unspecified; F17.210 Nicotine dependence, cigarettes, uncomplicated; D63.8 Anemia in other chronic diseases classified elsewhere; I25.10 Atherosclerotic heart disease of native coronary artery without angina pectoris; Z88.8 Allergy status to other drugs, medicaments and biological substances; Z95.0 Presence of cardiac pacemaker; Z90.710 Acquired absence of both cervix and uterus; Z82.0 Family history of epilepsy and other diseases of the nervous system; Z80.8 Family history of malignant neoplasm of other organs or systems; Z82.49 Family history of ischemic heart disease and other diseases of the circulatory system; Z82.5 Family history of asthma and other chronic lower respiratory diseases; Z79.82 Long term (current) use of aspirin
CPT/HCPCS: 36415; 71045; 71250; 80048; 80053; 80162; 81001; 83735; 83880; 84443; 84484; 85025; 85379; 87081; 93005; 93306; 93970; 94640; 99291; 99292; G0378; J2405; J3480